=== PATIENT | male | born 1970 | race Caucasian/White ===

== ENCOUNTER 2022-06-05 14:18 | Outpatient (CLI) | payer OTHER, SELFPAY ==
--- NOTE | 2022-06-05 14:30 | MR_ITS ---
[address] [address] Phone:?[phone] Fax:?[phone] Referring Physician Information: Stefanie José [address] [facility] [address] Phone:?[phone] Fax:?[phone] Patient:?Wil Fish D.O.B:?1970 Sex:?Male Phone:?[phone] [facility] MRN:?[id number] Exam Date:?06/05/2022 ? EXAM: MRI of the LEFT KNEE, without contrast CLINICAL INFORMATION: Male, 52 years old, with left knee pain. INDICATION: Evaluate knee pain. PRIOR SURGERY: None reported. PLAIN FILMS: None available. COMPARISONS: No prior MRIs available. TECHNICAL INFORMATION: Using a 1.5T MR scanner and a localizing surface coil: sagittals: PD, PDFS coronals: PD, T2FS axials: PD, PDFS SEDATION: None CONTRAST: None FINDINGS: Knee joint: Effusion: Trace-small left knee effusion. Popliteal cyst: None. Loose bodies: None. Subcutaneous and extra-articular soft tissues: Unremarkable. Ligaments: ACL: Intact ACL anteromedial and posterolateral bundles, without sprain or tear. PCL: Intact PCL, without acute or chronic injury. MCL: Intact MCL superficial and deep layers, without injury. LCL: Intact LCL, without injury. Posterolateral corner: No posterolateral corner soft tissue injury. Popliteus, biceps femoris, iliotibial band, popliteofibular ligament and lateral gastrocnemius are intact. Posteromedial corner: Mild semimembranosus insertional tendinopathy, without tear (axial FS series 4 images 21-25). Pes anserine tendons and posterior oblique ligament are without injury, tendinopathy or bursitis. Extensor mechanism: Patellar tendon: Intact, without tendinopathy. Quadriceps tendon: Intact, without tendinopathy. Retinacula: Medial and lateral retinacula are intact. Fat pads: Unremarkable infrapatellar Hoffa's, quadriceps and prefemoral fat pads. Medial compartment: Medial meniscus: No articular surface, meniscosynovial junction or root tear. No displacement, extrusion or parameniscal cyst. Medial femoral condyle & tibial plateau: Mild signal heterogeneity, surface irregularity, and thinning of the articular cartilage without full-thickness chondral loss or reactive osseous changes. Lateral compartment: Lateral meniscus: No articular surface, meniscosynovial junction or root tear. No displacement, extrusion or parameniscal cyst. Lateral femoral condyle: No chondromalacia or osteochondral abnormality. Lateral tibial plateau: No chondromalacia or osteochondral abnormality. Patellofemoral joint: Patella: Broad-based grade II/III chondromalacia is centered about the mid median ridge of the patella, with mild marginal osteophytosis (sagittal PDFS series 6 image 17). Trochlea: Broad-based grade II chondromalacia of the medial facet and central sulcus of the trochlea, with mild marginal osteophytosis. Proximal tibiofibular joint: Unremarkable, without evidence of ligament sprain injury, joint effusion or adjacent marrow edema. Bones: No stress/occult fractures or other marrow edema/pathology. IMPRESSION: 1. Mild osteoarthritis of the patellofemoral compartment. 2. Mild semimembranosus tendinopathy, without tear. 3. Trace-small knee joint effusion. No popliteal (Alaniz's) cyst. 4. No cruciate or collateral ligament sprain/tear. 5. No lateral meniscal tear. 6. No significant osteochondral abnormality of the medial or lateral compartment. BC Electronically signed on 06/06/2022 7:05:00 AM by Ike Bone M.D.
== END 2022-06-05 14:19 | disposition home or self-care (01) ==
PROVIDERS: PCP Internal Medicine; Visit Provider Physician Assistant Surgical
DX: M25.562 Pain in left knee (principal); M17.12 Unilateral primary osteoarthritis, left knee; M25.462 Effusion, left knee
CPT/HCPCS: 73721

== ENCOUNTER 2024-08-16 18:24 | Outpatient (CLI) | payer BC, SELFPAY ==
--- OUTSIDE RECORDS SUMMARY | 2024-08-19 11:52 | XMS_ITS | Continuity of Care Document ---
Author Organization [facility] Address [address] [place] [address] Phone Care Team Providers Care Warehouse General Laborer Name Role Phone Ricardo Burgos MD Unavailable [...] [facility], [address], [place], [address], [place] tel:[phone] [facility] , PainPositive Antibody 8 Aubrey Silva. [facility] [address], [place], [address], [place]. tel:[phone] Referring Provider: Ricardo Mendiola, [facility], [address], [place], [address]. tel:[phone] Family History Family Member Type Diagnosis Age At Onset Problem (finding) No family hist ory of Rheumatoid arthritis Payers Payer name Insurance type Covered constitution party ID Authorvinicio chen(s) [facility] [id number] Social History Type Description Quantity Date Captured [...]
--- OUTSIDE RECORDS SUMMARY | 2024-08-19 11:52 | XMS_ITS | Continuity of Care Document ---
Author Organization [facility] Address [address] [place] [address] Phone Care Team Providers Care Scientific Investigator Name Role Phone Dat Ramon MD Unavailable Unavailable Procedures Procedure Date Office/Outpatient Visit,Pedro Argueta 2017 Advance Directives Directive Yes / No Effective Date File Name No Information Encounters Encounter Description Practice Location Reason(s) For Visit Diagnoses Date Provider Providers Copied on Encounter [facility], [address], [place], [id number], [place] tel:[phone] [facility] No Information Yenny Daugherty. [facility] [place], [address] [place] [address], [id number] , [place]. tel:[phone] Office/Outpat ient Visit,[facility], [facility], [address], [facility] [place], [place], [id number], [place] tel:[phone] [facility] Kol[place] Hanna. [facility] [place], [address] [place] [address] [address], [place], [address], [place]. tel:[phone] Referring Provider: Carl Thompson, [facility] [address] [place] [address], [address]. tel:[phone] [facility], [address], [place], [id number], [place] tel:[phone] [facility] Low back pain Kolton Hanna. [facility], [address] [facility] [address], [place], [address], [place]. tel:[phone] Family History Family Member Type Diagnosis Age At Onset No Information Payers Payer name Insurance type Covered republican ID Authorvinicio chen([place]) [place] [address] [place] [id number] Social History Type Description Quantity Date Captured [...]
--- OUTSIDE RECORDS SUMMARY | 2024-08-19 11:52 | XMS_ITS | Clinical Summary ---
Author Organization [facility] Address [place], [place] [address] Care Team Providers Care Pack Changer Name Role Phone Carl Thompson MD Primary Care Provider Allergies No known active allergies Medications Medication Sig Dispensed Refills Start Date End Date Status methylphenidate (CONCERTA) 36 mg Extended-Releas e tablet Take 1 tablet by mouth once daily. 0 08/05/2012 Suspended methylphenidate (RITALIN) 10 mg tablet 1 tablet 2 times daily. 0 08/05/2012 4 Discontinued(Ph armacist change per medication history (E-cancel not sent)) ibuprofen (ADVIL; MOTRIN) 200 mg tablet Take 1 tablet by mouth 4 times daily if needed. 0 08/05/2012 4 Discontinued(Ph armacist change per medication history (E-cancel not sent)) multivitamin (CHEWABLE MULTI VITAMIN) chew Take 1 tablet by mouth once daily. 0 10/01/2013 4 Discontinued(Ph armacist change per medication history (E-cancel not sent)) testosterone 1%, 12.5mg/1.25g, (ANDROGEL) 12.5 mg/ 1.25 gram (1 %) glpm GEL APPLY 2 PUMPS ONTO SKIN DAILY APPLY FROM DISPENSER TO CLEAN DRY INTACT SKIN OF THE UPPER OF ARMS AND SHOULDERS 0 06/19/2018 Suspended montelukast (SINGULAIR) 10 mg tablet Take 10 mg by mouth once daily. 1 07/25/2018 11/03/202 4 Discontinued(Ph armacist change per medication history (E-cancel not sent)) furosemide (LASIX) 20 mg tablet TAKE 1 2 TABLET 10MG BY MOUTH TWICE DAILY 3 07/25/2018 4 Discontinued(Ph armacist change per medication history (E-cancel not sent)) indomethacin (INDOCIN) 50 mg capsule TAKE ONE CAPSULE BY MOUTH THREE TIMES A DAY NEEDED 1 07/29/2018 4 Discontinued(Ph armacist change per medication history (E-cancel not sent)) eszopiclone (LUNESTA) 1 mg tablet Bedtime 04/25/2018 4 Discontinued(Ph armacist change per medication history (E-cancel not sent)) escitalopram oxalate (LEXAPRO) 20 mg tablet Take 20 mg by mouth once daily. 0 07/25/2018 Suspended gabapentin (NEURONTIN) 600 mg tablet 2 09/16/2019 4 Discontinued(Ph armacist change per medication history (E-cancel not sent)) meloxicam 15 mg tablet 0 09/13/2019 4 Discontinued(Ph armacist change per medication history (E-cancel not sent)) furosemide (LASIX) 20 mg tablet Take 10 mg by mouth two times daily. Suspended baclofen 10 mg tablet Take 10 mg by mouth 3 times daily if needed (back pain). Suspended celecoxib (CeleBREX) 200 mg capsule Take 200 mg by mouth once daily. Suspended orphenadrine (NORFLEX) 100 mg tablet Take 100 mg by mouth once daily if needed (severe pain (7-10)). Suspended acetaminophen (TylenoL) 325 mg tablet Take 650 mg by mouth once daily if needed for Headache or Pain. Max acetaminophen dose: 4000mg in 24 hrs. Suspended vitamin B complex (B Complex-Vitamin B12) tablet Take 1 Tablet by mouth once daily. Suspended potassium gluconate 600 mg (99 mg) tab Take 99 mg by mouth once daily. Suspended glucosam-chondr rkm-O-ammeipxdo 500-400-2-0.33 mg cap Take 1 Capsule by mouth once daily. Suspended cetirizine (ZYRTEC) 10 mg tablet Take 10 mg by mouth once daily. Suspended Active Problems Problem Noted Date Diagnosed Date Acute ischemic stroke 08/17/2024 Cerebrovascular accident (CV A) due to embolism of right middle cerebral artery 08/16/2024 Sacroiliac joint pain from osteoarthritis 2012 Degeneration of lumbar or lumbosacral interverte bral disc 08/05/2012 Lumbar facet arthropathy 08/05/2012 Encounters Date Type Department Care Team Description 08/18/2024 12:39 PM FACILITIES MAINTENANCE ENGINEER Anesthesia Event [facility] [address] [place] [address] Belkis Burnett MD Claeson, Kristin Lee, FILM ARCHIVIST 08/18/2024 12:34 PM FACILITIES MAINTENANCE ENGINEER - 08/18/2024 3:24 PM FACILITIES MAINTENANCE ENGINEER Surgery [facility] [address] [place] [address] Gal Doherty, [facility] RIGHT CRANIECTOMY 08/17/2024 Travel 08/16/2024 8:59 PM CDT - Present Hospital Encounter [facility] [address] [place] [address] Cierra Welch, Colt Rodriguez MBBS Litell, John Martin, DO 08/16/2024 Office Visit [facility] [address] [place] [address] Berna Méndze MD Telehealth ([facility]) from Last 3 Months Family History Medical History Relation Name Comments Stroke Mother Relation Name Status Comments Mother Social History Tobacco Use Types Packs/Day Years Used Date Smoking Tobacco: Former Cigarettes 0.5 30 Smokeless Tobacco: Never Tobacco Cessation:Counseling Given: Not Answered Alcohol Use Standard Drinks/Week Comments Yes 0 (1 standard drink = 0.6 oz pur e alcohol) occassional beer 1-2 x/weeks Sex and Gender Information Value Date Recorded Sex Assigned at Not on file Gender Identity Not on file Sexual Orientation Not on file Obstetrics History Last Filed Vital Signs Vital Sign Reading Time Taken Comments Blood Pressure 172/114 08/19/2024 11:00 AM FACILITIES MAINTENANCE ENGINEER Pulse 120 08/19/2024 11:00 AM FACILITIES MAINTENANCE ENGINEER Temperature 37.4 ??C (99.3 ??F) 08/19/2024 1 0:00 AM FACILITIES MAINTENANCE ENGINEER Respiratory Rate 22 08/19/2024 10:0 0 AM FACILITIES MAINTENANCE ENGINEER Oxygen Saturation 97% 08/19/2024 11: 00 AM FACILITIES MAINTENANCE ENGINEER Inhaled Oxygen Concentration - - Weight 136.5 kg (300 lb 14.4 oz) 08/18/2024 6:00 AM FACILITIES MAINTENANCE ENGINEER Height 162.6 cm (5' 4) 08/17/2024 1:00 AM CDT Body Mass Index 51.65 08/17/2024 1:00 AM CDT Plan of Treatment Health Maintenance Due Date Last Done Comments Tdap 1983 Depression screening for age 12+ 1984 HIV for age 15-65 1987 Hepatitis C screening for age 18-79 1990 Tetanus booster 1992 Colonoscopy through age 75 2017 BMI (ht and wt on same day) for age 18+ 08/01/2019 08/01/2018 Zoster (shingles) series for age 50+ (1 of 2) 2022 Influenza for age 50-64 06/15/2024 Lipids for age 45-75 08/17/2029 08/17/2024 COVID-19 vaccine series Completed 07/04/20, 08/02/2023, 07/25/2022, Additional history exists Pneumococcal series for age 6-64 Aged Out No longer eligible based on patient's age to complete this topic Medical Devices Implanted Type Area Fiberline Supervisor Device Identifier Shelf Expiration Date Model / Serial / Lot Dura Neuro 4x5in Duragen Sut - [id number] Implanted:Qty: 1 on 08/18/2024 by Gal Doherty MBChB at [facility] Right: Cranium Integra LifesciMZL [employer] 05/14/2026 [id number] / / [id number] Dura Neuro 4x5in Duragen Sut - [id number] Implanted:Qty: 1 on 08/18/2024 by Gal Doherty MBChB at [facility] Right: Cranium Integra LifesciMZL [employer] 05/14/2026 [id number] / / [id number] Procedures The patient is currently admitted. The information in this section might not be complete until the patient is discharged. Procedure Name Priority Date/Time Associated Diagnosis Comments ECHO TTE COMPLETE WO CONTRAST W BUBBLE Routine 08/19/2024 10:37 AM FACILITIES MAINTENANCE ENGINEER SODIUM Timed 08/19/2024 10:31 AM FACILITIES MAINTENANCE ENGINEER GLUCOSE METER Timed 08/19/2024 10:28 AM FACILITIES MAINTENANCE ENGINEER SCAN-CARDIAC STRIP 08/19/2024 9: 24 AM FACILITIES MAINTENANCE ENGINEER HEMOGLOBIN Early AM 08/19/2024 5:41 AM FACILITIES MAINTENANCE ENGINEER POTASSIUM Early AM 08/19/2024 5:04 AM FACILITIES MAINTENANCE ENGINEER MAGNESIUM Early AM 08/19/2024 5:04 AM FACILITIES MAINTENANCE ENGINEER SODIUM Timed 08/19/2024 5:04 AM FACILITIES MAINTENANCE ENGINEER GLUCOSE METER Timed 08/19/2024 5:03 AM FACILITIES MAINTENANCE ENGINEER GLUCOSE METER Timed 08/19/2024 5:01 AM FACILITIES MAINTENANCE ENGINEER CT HEAD BRAIN WO Routine 08/19/2024 4:08 AM FACILITIES MAINTENANCE ENGINEER GLUCOSE METER Timed 08/19/2024 2:28 AM FACILITIES MAINTENANCE ENGINEER GLUCOSE METER Timed 08/19/2024 1:07 AM FACILITIES MAINTENANCE ENGINEER BLOOD GAS,VENOUS STAT 08/19/2024 1:06 AM FACILITIES MAINTENANCE ENGINEER CBC WITH AUTO DIFFERENTIAL JOSE 08/18/2024 10:00 PM FACILITIES MAINTENANCE ENGINEER CBC WITH AUTO DIFFERENTIAL JOSE 08/18/2024 10:00 PM FACILITIES MAINTENANCE ENGINEER GLUCOSE METER Timed 08/18/2024 9:36 PM FACILITIES MAINTENANCE ENGINEER SODIUM Timed 08/18/2024 9:13 PM FACILITIES MAINTENANCE ENGINEER PHOSPHORUS Timed 08/18/2024 9:13 PM FACILITIES MAINTENANCE ENGINEER SCAN-CARDIAC STRIP 08/18/2024 8: 05 PM FACILITIES MAINTENANCE ENGINEER GLUCOSE METER Timed 08/18/2024 6:24 PM FACILITIES MAINTENANCE ENGINEER SODIUM Timed 08/18/2024 4:51 PM FACILITIES MAINTENANCE ENGINEER ENDOTRACHEAL TUBE Routine 08/18/2024 1:3 3 PM FACILITIES MAINTENANCE ENGINEER ENDOTRACHEAL TUBE Routine 08/18/2024 1:3 3 PM FACILITIES MAINTENANCE ENGINEER ENDOTRACHEAL TUBE Routine 08/18/2024 1:3 3 PM FACILITIES MAINTENANCE ENGINEER OTHER CRANIOTOMY Class D Urgent 08/18/2024 11:5 6 AM FACILITIES MAINTENANCE ENGINEER Case Notes DRAKE Potter, TYPE & SCREEN Preop 08/18/2024 11:49 AM FACILITIES MAINTENANCE ENGINEER CT HEAD BRAIN WO Routine 08/18/2024 10:4 4 AM FACILITIES MAINTENANCE ENGINEER SODIUM Timed 08/18/2024 10:21 AM FACILITIES MAINTENANCE ENGINEER GLUCOSE METER Timed 08/18/2024 10:15 AM FACILITIES MAINTENANCE ENGINEER GLUCOSE METER Timed 08/18/2024 6:12 AM FACILITIES MAINTENANCE ENGINEER CBC W PLT NO DIFF Early AM 08/18/2024 5:1 5 AM FACILITIES MAINTENANCE ENGINEER BASIC METABOLIC PANEL Early AM 08/18/2024 5:15 AM FACILITIES MAINTENANCE ENGINEER PHOSPHORUS Early AM 08/18/2024 5:15 AM FACILITIES MAINTENANCE ENGINEER MAGNESIUM Early AM 08/18/2024 5:15 AM FACILITIES MAINTENANCE ENGINEER SODIUM Timed 08/18/2024 4:10 AM FACILITIES MAINTENANCE ENGINEER CT HEAD BRAIN WO Routine 08/18/2024 3:33 AM FACILITIES MAINTENANCE ENGINEER DRUG SCREEN RAPID URINE INHOUSE Today 08/18/2024 2:39 AM FACILITIES MAINTENANCE ENGINEER GLUCOSE METER Timed 08/18/2024 1:57 AM FACILITIES MAINTENANCE ENGINEER GLUCOSE METER Timed 08/17/2024 10:54 PM FACILITIES MAINTENANCE ENGINEER SODIUM Timed 08/17/2024 10:48 PM FACILITIES MAINTENANCE ENGINEER SCAN-CARDIAC STRIP 08/17/2024 8: 00 PM FACILITIES MAINTENANCE ENGINEER GLUCOSE METER Timed 08/17/2024 6:59 PM FACILITIES MAINTENANCE ENGINEER CT HEAD BRAIN WO Routine 08/17/2024 6:26 PM FACILITIES MAINTENANCE ENGINEER SODIUM Timed 08/17/2024 3:58 PM FACILITIES MAINTENANCE ENGINEER XR ABDOMEN 1 VIEW PORTABLE STAT 08/17/2024 3:10 PM FACILITIES MAINTENANCE ENGINEER GLUCOSE METER Timed 08/17/2024 2:15 PM FACILITIES MAINTENANCE ENGINEER SODIUM Timed 08/17/2024 10:49 AM FACILITIES MAINTENANCE ENGINEER BLOOD GAS,VENOUS STAT 08/17/2024 10:4 9 AM FACILITIES MAINTENANCE ENGINEER GLUCOSE METER Timed 08/17/2024 10:43 AM FACILITIES MAINTENANCE ENGINEER MR HEAD BRAIN WO Routine 08/17/2024 9:32 AM FACILITIES MAINTENANCE ENGINEER CT HEAD BRAIN WO STAT 08/17/2024 6:21 AM FACILITIES MAINTENANCE ENGINEER GLUCOSE METER Timed 08/17/2024 5:57 AM FACILITIES MAINTENANCE ENGINEER CBC WITH AUTO DIFFERENTIAL Early AM 08/17/2024 5:00 AM FACILITIES MAINTENANCE ENGINEER POTASSIUM Early AM 08/17/2024 5:00 AM FACILITIES MAINTENANCE ENGINEER PHOSPHORUS Early AM 08/17/2024 5:00 AM FACILITIES MAINTENANCE ENGINEER MAGNESIUM Early AM 08/17/2024 5:00 AM FACILITIES MAINTENANCE ENGINEER HEMOGLOBIN A1C Early AM 08/17/2024 5:00 AM FACILITIES MAINTENANCE ENGINEER CBC WITH AUTO DIFFERENTIAL Early AM 08/17/2024 5:00 AM FACILITIES MAINTENANCE ENGINEER LIPID PANEL Early AM 08/17/2024 5:00 AM FACILITIES MAINTENANCE ENGINEER PROTIME-INR Early AM 08/17/2024 5:00 AM FACILITIES MAINTENANCE ENGINEER APTT Early AM 08/17/2024 5:00 AM FACILITIES MAINTENANCE ENGINEER GLUCOSE METER Timed 08/17/2024 3:11 AM FACILITIES MAINTENANCE ENGINEER SCAN-CARDIAC STRIP 08/17/2024 1: [address] HEAD BRAIN WO STAT 08/17/2024 12:4 2 AM CDT GLUCOSE METER Timed 08/17/2024 12:20 AM CDT HEMOGLOBIN A1C MONITORING (POCT) Today 08/16/2024 10:55 PM CDT BASIC METABOLIC PANEL STAT 08/16/2024 10:55 PM CDT PHOSPHORUS Today 08/16/2024 10:55 PM CDT MAGNESIUM Today 08/16/2024 10:55 PM CDT GLUCOSE METER Timed 08/16/2024 10:10 PM CDT SCAN-CARDIAC STRIP 08/16/2024 10 :07 PM CDT IR ANGIO NEURO-INTERVENTIONAL STAT 08/16/2024 9:44 PM CDT SCAN-CARDIAC STRIP 08/16/2024 12 :00 AM CDT from Last 3 Months Results * ECHO TTE COMPLETE WO CONTRAST W BUBBLE (08/19/2024 10:37 AM FACILITIES MAINTENANCE ENGINEER) AORTIC VALVE MEAN PG 8 mmHg LVEDD 4.9 cm EJECTION FRACTION 70 - 75% Anatomical Region Laterality Modality Ultrasound 08/19/2024 8:21 AM FACILITIES MAINTENANCE ENGINEER Narrative 08/19/2024 10:58 AM FACILITIES MAINTENANCE ENGINEER ECHOCARDIOGRAM DIONI DAWSON ? Accession#: ?? [id number] : ?1970 54 years Study Date: ?? 08/19/2024 8:21:42 AM Gender: M ?BP: ? 176/111 mmHg Height: 163.00 cm ?BSA: ?2.34 m? ? ? Weight: 137.00 kg ?Tech: ? Santi Guerra ? Referring MD: DODIE FRANCE Site: ? [facility] Patient Location: Inpatient. Procedure: 2D, 2D w/ Contrast, 2D w/ Bubbles, Color Doppler and Spectral Doppler. Indication for study: Cerebral thrombosism aretery occlusion, Embolism Cardiac Rhythm: Normal sinus.Study quality: Technically limited. Final Impressions: 1. Technically limited exam. 2. Normal LV size, mildly increased wall thickness, normal global systolic function with an estimated EF of 70 - 75%. 3. Right ventricular cavity size is normal, global systolic RV function is normal. 4. Echo contrast was administered to enhance visualization of all left ventricular segments. 5. No significant valve disease detected based on available images. Chamber Sizes and Function Normal left ventricular size, mildly increased wall thickness, normal global systolic function with an estimated EF of 70 - 75%. No resting regional wall motion abnormality visualized. Left atrial size is normal. Right ventricular cavity size is normal, global systolic RV function is normal. The right atrium is normal. The pulmonary artery is not well visualized. The sinus of Valsalva is not well visualized. The ascending aorta is not well visualized. Valves, RV Pressures and Diastolic Function The aortic valve is not well visualized , no stenosis and no regurgitation. The mitral valve is not well visualized, trace mitral regurgitation. Indeterminate pattern of LV diastolic filling. The tricuspid valve is not well visualized. Tricuspid regurgitation is trace regurgitation. The pulmonic valve is not well visualized. Unable to determine pulmonary regurgitation. Masses, Effusion, Shunts There is no pericardial effusion. The inferior vena cava is not well visualized, respiratory size variation not well visualized. Interatrial septum is not well visualized. MEASUREMENTS AND CALCULATIONS 2-D Measurements and LV Function: LVID (d) 4.9 cm LV FS% (2D) ?? 48 % LVID (s) 2.6 cm LVOT diameter 2.1 cm IVS (d) ??1.2 cm HR ?117 bpm LVPW (d) 1.4 cm Diastology: Mitral ?Tissue Doppler E Peak 0.8 m/s ??e', Lateral ?0.15 m/s A Peak 1.3 m/s E/A ?0.7 DT ? 202 msec Aortic Valve: Vmax ? 1.8 m/s ??KENNEDY (V) ?? 2.34 cm? ? ? VTI ?0.36 m ?? KENNEDY (I) ?? 2.06 cm? ? ? LVOT V max 1.2 m/s ??Max PG ?13 mmHg LVOT VTI ?? 0.21 m ?? Mean PG ?? 8 mmHg SV ? 73 ml ?Dim Index 0.58 SV index ?? 31 ml/m? ? ? CO ?8.6 l/min ?CI ?3.7 l/min/m? ? ? Mitral Valve: MVA ?3.8 cm? ? ? MV P 1/2 59 msec Tricuspid Valve and estimated PA pressures: Pulmonic Valve: PV Vmax 1.4 m/s Contrast documentation: 2 ml diluted Definity, lot #[id number], [facility]# [id number] was administered peripherally to enhance visualization of all left ventricular segments. . This study was interpreted by an [facility] accredited facility. ??Final ?? Procedure Note Quique Castelan MD - 08/19/2024 ECHOCARDIOGRAM DIONI DAWSON : 1970 54 years Study Date: 08/19/2024 8:21:42 AM Gender: M BP: 176/111 mmHg Height: 163.00 cm BSA: 2.34 m? ? ? Weight: 137.00 kg Tech: Santi Guerra Referring MD: DODIE FRANCE Site: [facility] Reading [facility] Patient Location: Inpatient. Procedure: 2D, 2D w/ Contrast, 2D w/ Bubbles, Color Doppler and SpectralDoppler. Indication for study: Cerebral thrombosism aretery occlusion, Embolism Cardiac Rhythm: Normal sinus.Study quality: Technically limited. Final Impressions: 1. Technically limited exam. 2. Normal LV size, mildly increased wall thickness, normal globalsystolic function with an estimated EF of 70 - 75%. 3. Right ventricular cavity size is normal, global systolic RV functionis normal. 4. Echo contrast was administered to enhance visualization of all leftventricular segments. 5. No significant valve disease detected based on available images. Chamber Sizes and Function Normal left ventricular size, mildly increased wall thickness, normalglobal systolic function with an estimated EF of 70 - 75%. No restingregional wall motion abnormality visualized. Left atrial size is normal.Right ventricular cavity size is normal, global systolic RV function isnormal. The right atrium is normal. The pulmonary artery is not wellvisualized. The sinus of Valsalva is not well visualized. The ascendingaorta is not well visualized. Valves, RV Pressures and Diastolic Function The aortic valve is not well visualized , no stenosis and noregurgitation. The mitral valve is not well visualized, trace mitralregurgitation. Indeterminate pattern of LV diastolic filling. Thetricuspid valve is not well visualized. Tricuspid regurgitation is traceregurgitation. The pulmonic valve is not well visualized. Unable todetermine pulmonary regurgitation. Masses, Effusion, Shunts There is no pericardial effusion. The inferior vena cava is not wellvisualized, respiratory size variation not well visualized. Interatrialseptum is not well visualized. MEASUREMENTS AND CALCULATIONS 2-D Measurements and LV Function: LVID (d) 4.9 cm LV FS% (2D) 48 % LVID (s) 2.6 cm LVOT diameter 2.1 cm IVS (d) 1.2 cm HR 117 bpm LVPW (d) 1.4 cm Diastology: Mitral Tissue Doppler E Peak 0.8 m/s e', Lateral 0.15 m/s A Peak 1.3 m/s E/A 0.7 DT 202 msec Aortic Valve: Vmax 1.8 m/s KENNEDY (V) 2.34 cm? ? ? VTI 0.36 m KENNEDY (I) 2.06 cm? ? ? LVOT V max 1.2 m/s Max PG 13 mmHg LVOT VTI 0.21 m Mean PG 8 mmHg SV 73 ml Dim Index 0.58 SV index 31 ml/m? ? ? CO 8.6 l/min CI 3.7 l/min/m? ? ? Mitral Valve: MVA 3.8 cm? ? ? MV P 1/2 59 msec Tricuspid Valve and estimated PA pressures: Pulmonic Valve: PV Vmax 1.4 m/s Contrast documentation: 2 ml diluted Definity, lot #[id number], [facility]#[id number] was administered peripherally to enhance visualization of allleft ventricular segments. . This study was interpreted by an [facility] accredited facility. Final Dodie France MD ECHO ORD * (ABNORMAL) Sodium - ICU PROT NaCl 3% IV Infusion for Neuro Neurosurgery (08/19/2024 10:31 AM FACILITIES MAINTENANCE ENGINEER) Only the most recent of9 resultswithin the time period is included. SODIUM 152(H) 136 - 145 mmol/L 08/19/2024 11:10 AM [facility] Blood BLOOD SPECIMEN / Unknown Non-Lab Venipuncture / Unknown 08/19/2024 10:31 AM FACILITIES MAINTENANCE ENGINEER 08/19/2024 10:48 AM FACILITIES MAINTENANCE ENGINEER Karolina Curtis NP CHEMISTRY Performing Organization Address [facility] Co de Phone Number [facility] [address] [place] [address], * (ABNORMAL) GLUCOSE METER (08/19/2024 10:28 AM FACILITIES MAINTENANCE ENGINEER) Only the most recent of18 resultswithin the time period is included. GLUCOSE METER 161(H) 65 - 100 mg/dL 08/19/2024 10:50 AM FACILITIES MAINTENANCE ENGINEER [facility] Blood BLOOD SPECIMEN / Unknown 08/19/2024 10:28 AM FACILITIES MAINTENANCE ENGINEER 08/19/2024 10:50 AM FACILITIES MAINTENANCE ENGINEER Alfonso Carlin DO CHEMISTRY Performing Organization Address [facility] Co de Phone Number [facility] [address] [place] [address], * SCAN-CARDIAC STRIP (08/19/2024 9:24 AM FACILITIES MAINTENANCE ENGINEER) Scanner OTHER * (ABNORMAL) HEMOGLOBIN (08/19/2024 5:41 AM FACILITIES MAINTENANCE ENGINEER) HEMOGLOBIN 12.1(L) 13.5 - 17.5 g/dL 08/19/2024 5:57 AM FACILITIES MAINTENANCE ENGINEER [facility] MCV 94 80 - 100 fL 08/19/2024 5:57 AM FACILITIES MAINTENANCE ENGINEER [facility] Blood BLOOD SPECIMEN / Unknown Non-Lab Venipuncture / Unknown 08/19/2024 5:41 AM FACILITIES MAINTENANCE ENGINEER 08/19/2024 5:50 AM FACILITIES MAINTENANCE ENGINEER Rakesh Arboleda MD HEMATOLOGY Performing Organization Address [facility] Co de Phone Number [facility] [address] [place] [address], * POTASSIUM (08/19/2024 5:04 AM FACILITIES MAINTENANCE ENGINEER) Only the most recent of2 resultswithin the time period is included. POTASSIUM 3.7 3.5 - 5.1 mmol/L 08/19/2024 5:45 AM FACILITIES MAINTENANCE ENGINEER [facility] Blood BLOOD SPECIMEN / Unknown Line/Port / Unknown 08/19/2024 5:04 AM FACILITIES MAINTENANCE ENGINEER 08/19/2024 5:11 AM FACILITIES MAINTENANCE ENGINEER [employer] CHEMISTRY Performing Organization Address [facility]/ZIP Co de Phone Number [facility] [address] [place] [address], * MAGNESIUM (08/19/2024 5:04 AM FACILITIES MAINTENANCE ENGINEER) Only the most recent of4 resultswithin the time period is included. MAGNESIUM 2.2 1.6 - 2.6 mg/dL 08/19/2024 5:45 AM FACILITIES MAINTENANCE ENGINEER [facility] Blood BLOOD SPECIMEN / Unknown Line/Port / Unknown 08/19/2024 5:04 AM FACILITIES MAINTENANCE ENGINEER 08/19/2024 5:11 AM FACILITIES MAINTENANCE ENGINEER [employer] CHEMISTRY Performing Organization Address [facility] de Phone Number [facility] [address] [place] [address], [place] * CT HEAD BRAIN WO (08/19/2024 4:08 AM FACILITIES MAINTENANCE ENGINEER) Only the most recent of6 resultswithin the time period is included. Anatomical Region Laterality Modality HEAD, BRAIN Computed Tomogra phy 08/19/2024 7:06 AM FACILITIES MAINTENANCE ENGINEER Addenda Addendum by Gisele Rush MD on 08/19/2024 7:52 AM FACILITIES MAINTENANCE ENGINEER INDICATION: Neuro deficit, follow-up stroke/alexandra TECHNIQUE: CT head without contrast. COMPARISON: CT head 08/18/2024 FINDINGS: MASS EFFECT & VENTRICLES: Similar leftward midline shift measuring 5 millimeters. Similar near complete effacement of the right lateral ventricle and crowding of the right ambient cistern. Sulcal effacement throughout the right cerebral hemisphere. BRAIN: Redemonstration of large right MCA infarct. No intraparenchymal hemorrhage. Redemonstration of hyperdense right MCA. EXTRA-AXIAL: New subarachnoid hemorrhage throughout the right frontal and parietal lobes. Sequela of right decompressive craniotomy including some gas in the extra-axial space. EXTRA-CRANIAL: Post right decompressive craniotomy involving the right frontal and parietal bones, and parts of the temporal and occipital bones. Expected gas along the scalp. Soft tissue swelling and gas throughout the right face. [place] overlying the craniotomy. The visualized sinuses and mastoids are clear. Orbits are normal. Enteric tube in the right nare. IMPRESSION: Post interval right decompressive craniotomy with extensive gas and soft tissue swelling along the scalp and right face. New subarachnoid hemorrhage in the right frontal and parietal lobes, which can be seen postoperatively. Expected evolution of the large right MCA infarct with similar mass effect, including 5 millimeters of leftward midline shift, near complete effacement of the right lateral ventricle, and crowding of the right ambient cistern. Please note that all CT scans at this facility use dose modulation, iterative reconstruction, and/or weight-based dosing when appropriate to reduce radiation dose to as low as reasonably achievable. Dictated by Gisele Rush MD @ 08/19/2024 7:06:07 AM ----- ADDENDUM ----- These results were communicated to [place] by Adri on 08/19/2024 at 7:06 a.m. Dictated by Gisele Rush MD @ Nov ??2023 ??7:52AM (Electronically Signed) Impressions 08/19/2024 7:06 AM FACILITIES MAINTENANCE ENGINEER Post interval right decompressive craniotomy with extensive gas and soft tissue swelling along the scalp and right face. New subarachnoid hemorrhage in the right frontal and parietal lobes, which can be seen postoperatively. Expected evolution of the large right MCA infarct with similar mass effect, including 5 millimeters of leftward midline shift, near complete effacement of the right lateral ventricle, and crowding of the right ambient cistern. Please note that all CT scans at this facility use dose modulation, iterative reconstruction, and/or weight-based dosing when appropriate to reduce radiation dose to as low as reasonably achievable. Dictated by Gisele Rush MD @ 08/19/2024 7:06:07 AM (Electronically Signed) Narrative 08/19/2024 7:06 AM FACILITIES MAINTENANCE ENGINEER For Patients: ??As a result of the 21st Century Cures Act, medical imaging exams and procedure reports are released immediately into your electronic medical record. ??You may view this report before your referring provider. ??If you have questions, please contact your health care provider. INDICATION: Neuro deficit, follow-up stroke/alexandra TECHNIQUE: CT head without contrast. COMPARISON: CT head 08/18/2024 FINDINGS: MASS EFFECT & VENTRICLES: Similar leftward midline shift measuring 5 millimeters. Similar near complete effacement of the right lateral ventricle and crowding of the right ambient cistern. Sulcal effacement throughout the right cerebral hemisphere. BRAIN: Redemonstration of large right MCA infarct. No intraparenchymal hemorrhage. Redemonstration of hyperdense right MCA. EXTRA-AXIAL: New subarachnoid hemorrhage throughout the right frontal and parietal lobes. Sequela of right decompressive craniotomy including some gas in the extra-axial space. EXTRA-CRANIAL: Post right decompressive craniotomy involving the right frontal and parietal bones, and parts of the temporal and occipital bones. Expected gas along the scalp. Soft tissue swelling and gas throughout the right face. [place] overlying the craniotomy. The visualized sinuses and mastoids are clear. Orbits are normal. Enteric tube in the right nare. Procedure Note Gisele Rush MD - 08/19/2024 For Patients: As a result of the Century Cures Act, medical imagingexams and procedure reports are released immediately into your electronicmedical record. You may view this report before your referring provider.If you have questions, please contact your health care provider. INDICATION: Neuro deficit, follow-up stroke/alexandra TECHNIQUE: CT head without contrast. COMPARISON: CT head 08/18/2024 FINDINGS: MASS EFFECT & VENTRICLES: Similar leftward midline shift measuring 5millimeters. Similar near complete effacement of the right lateralventricle and crowding of the right ambient cistern. Sulcal effacementthroughout the right cerebral hemisphere. BRAIN: Redemonstration of large right MCA infarct. No intraparenchymalhemorrhage. Redemonstration of hyperdense right MCA. EXTRA-AXIAL: New subarachnoid hemorrhage throughout the right frontal andparietal lobes. Sequela of right decompressive craniotomy including somegas in the extra- axial space. EXTRA-CRANIAL: Post right decompressive craniotomy involving the rightfrontal and parietal bones, and parts of the temporal and occipital bones.Expected gas along the scalp. Soft tissue swelling and gas throughout theright face. [place] overlying the craniotomy. The visualized sinuses andmastoids are clear. Orbits are normal. Enteric tube in the right nare. IMPRESSION: Post interval right decompressive craniotomy with extensive gas and softtissue swelling along the scalp and right face. New subarachnoid hemorrhage in the right frontal and parietal lobes, whichcan be seen postoperatively. Expected evolution of the large right MCA infarct with similar masseffect, including 5 millimeters of leftward midline shift, near completeeffacement of the right lateral ventricle, and crowding of the rightambient cistern. Please note that all CT scans at this facility use dose modulation,iterative reconstruction, and/or weight-based dosing when appropriate toreduce radiation dose to as low as reasonably achievable. Dictated by Gisele Rush MD @ 08/19/2024 7:06:07 AM (Electronically Signed) Rakesh Arboleda MD CT * (ABNORMAL) BLOOD GAS,VENOUS (08/19/2024 1:06 AM FACILITIES MAINTENANCE ENGINEER) Only the most recent of2 resultswithin the time period is included. PH, VENOUS 7.35 7.32 - 7.43 08/19/2024 1:17 AM [facility] PCO2, VENOUS 47 41 - 51 mmHg 08/19/2024 1:17 AM [facility] PO2, VENOUS 47(H) 35 - 40 mmHg 08/19/2024 1:17 AM [facility] HCO3,VENOUS 26 22 - 29 mmol/L 08/19/2024 1:17 AM FACILITIES MAINTENANCE ENGINEER [facility] BASE EXCESS, VENOUS, POCT -0.2 -2.0 - 3.0 08/19/2024 1:17 AM [facility] O2 SATURATION, VENOUS 79(H) 70 - 75 % 08/19/2024 1:17 AM [facility] PATIENT TEMPERATURE 37.0 Degrees C 08/19/2024 1:17 AM [facility] Blood VENOUS BLOOD SPECIMEN / Unknown Non-Lab Venipuncture / Unknown 08/19/2024 1:06 AM FACILITIES MAINTENANCE ENGINEER 08/19/2024 1:13 AM FACILITIES MAINTENANCE ENGINEER Rakesh Arboleda MD CHEMISTRY [facility] [address] [place] [address], [place] * (ABNORMAL) CBC WITH AUTO DIFFERENTIAL (08/18/2024 10:00 PM FACILITIES MAINTENANCE ENGINEER) Only the most recent of2 resultswithin the time period is included. WHITE BLOOD COUNT 23.1(H) 4.5 - 11.0 thou/cu mm 08/18/2024 10:34 PM [facility] RED BLOOD COUNT 4.05(L) 4.30 - 5.90 mil/cu mm 08/18/2024 10:34 PM [facility] HEMOGLOBIN 11.8(L) 13.5 - 17.5 g/dL 08/18/2024 10:34 PM [facility] HEMATOCRIT 37.8 37.0 - 53.0 % 08/18/2024 10:34 PM [facility] MCV 93 80 - 100 fL 08/18/2024 10:34 PM [facility] MCH 29.1 26.0 - 34.0 pg 08/18/2024 10:34 PM [facility] MCHC 31.2(L) 32.0 - 36.0 g/dL 08/18/2024 10:34 PM [facility] RDW 14.4 11.5 - 15.5 % 08/18/2024 10:34 PM [facility] PLATELET COUNT 230 140 - 440 thou/cu mm 08/18/2024 10:34 PM [facility] MPV 9.6 6.5 - 11.0 fL 08/18/2024 10:34 PM [facility] NRBC 0.0 % 08/18/2024 10:34 PM [facility] ABS NRBC 0.0 thou /cu mm 08/18/2024 10:34 PM [facility] % NEUT 90.3 % 08/18/2024 10:34 PM [facility] % LYMPH 3.4 % 08/18/2024 10:34 PM [facility] % MONO 5.5 % 08/18/2024 10:34 PM [facility] % EOS 0.0 % 08/18/2024 10:34 PM [facility] % BASO 0.2 % 08/18/2024 10:34 PM [facility] % IMMATURE GRAN (METAS,MYELOS,MO OS) 0.6 % 08/18/2024 10:34 PM [facility] ABSOLUTE NEUTROPHILS 20.9(H) 1.7 - 7.0 thou/cu mm 08/18/2024 10:34 PM [facility] ABSOLUTE LYMPHOCYTES 0.8(L) 0.9 - 2.9 thou/cu mm 08/18/2024 10:34 PM [facility] ABSOLUTE MONOCYTES 1.3(H) <0.9 thou/cu mm 08/18/2024 10:34 PM [facility] ABSOLUTE EOSINOPHILS 0.0 <0.5 thou/cu mm 08/18/2024 10:34 PM [facility] ABSOLUTE BASOPHILS 0.0 <0.3 thou/cu mm 08/18/2024 10:34 PM [facility] ABSOLUTE IMMATURE GRANULOCYTES(MET ,MYELOS,PROS) 0.2 <0.3 thou/cu mm 08/18/2024 10:34 PM [facility] Blood BLOOD SPECIMEN / Unknown Line/Port / Unknown 08/18/2024 10:00 PM FACILITIES MAINTENANCE ENGINEER 08/18/2024 10:10 PM [facility] Tony Blevins RN HEMATOLOGY [facility] [address] [place] [id number], * PHOSPHORUS (08/18/2024 9:13 PM FACILITIES MAINTENANCE ENGINEER) Only the most recent of4 resultswithin the time period is included. PHOSPHORUS 2.8 2.5 - 4.5 mg/dL 08/18/2024 10:18 PM FACILITIES MAINTENANCE ENGINEER [facility] Blood BLOOD SPECIMEN / Unknown Non-Lab Venipuncture / Unknown 08/18/2024 9:13 PM FACILITIES MAINTENANCE ENGINEER 08/18/2024 9:49 PM FACILITIES MAINTENANCE ENGINEER Colt NICOLE CHEMISTRY [facility] [address] [place] [id number], * SCAN-CARDIAC STRIP (08/18/2024 8:05 PM FACILITIES MAINTENANCE ENGINEER) Scanner OTHER * HCHG TUBE PR1, HCHG INSTRUMENT DISP PR10, HCHG STYLET PR1 (08/18/2024 1:33 PM FACILITIES MAINTENANCE ENGINEER) Narrative Nenita Kaba CRNA - 08/18/2024 1:33 PM FACILITIES MAINTENANCE ENGINEER Nenita Kaba CRNA ? 08/18/2024 ??1:34 PM Procedure: ETT Patient location during procedure: OR ETT Properties Mask Ventilation: easy (2 hand.) Final Technique: video laryngoscopy Type: straight Location: oral Cuffed: yes Tube Size: 7.0 mm Stylet: yes Laryngoscope Blade: Glidescope Blade Size: 3 Cormack-Lehane Grade View: 1 Insertion Attempts: 1 Placement Verification: auscultation, end tidal CO2, symmetrical chest wall movement and cuff palpation Assessment: pharynx clear, atraumatic and dentition unchanged Secured at: 23 Measured From: lips Bite Block: soft Difficulty: 0 (not difficult) Belkis Burnett MD ANESTHESIA PX NOTE O RDERABLES * Type and Screen (08/18/2024 11:49 AM FACILITIES MAINTENANCE ENGINEER) ABORH AB Rh Positive 08/18/2024 12:50 PM [facility] ANTIBODY SCREEN Negative Negative 08/18/2024 12:50 PM [facility] SPECIMEN EXPIRATION DATE/TIME 08/21/24 23:59 08/18/2024 12:50 PM [facility] Blood BLOOD SPECIMEN / Unknown Non-Lab Venipuncture / Unknown 08/18/2024 11:49 AM FACILITIES MAINTENANCE ENGINEER 08/18/2024 12:01 PM FACILITIES MAINTENANCE ENGINEER Abbey Antunez MIXER MACHINE [facility] [address] [place] [address], * (ABNORMAL) CBC W PLT NO DIFF (08/18/2024 5:15 AM FACILITIES MAINTENANCE ENGINEER) WHITE BLOOD COUNT 17.0(H) 4.5 - 11.0 thou/cu mm 08/18/2024 5:41 AM [facility] RED BLOOD COUNT 4.31 4.30 - 5.90 mil/cu mm 08/18/2024 5:41 AM [facility] HEMOGLOBIN 12.6(L) 13.5 - 17.5 g/dL 08/18/2024 5:41 AM [facility] HEMATOCRIT 39.8 37.0 - 53.0 % 08/18/2024 5:41 AM [facility] MCV 92 80 - 100 fL 08/18/2024 5:41 AM [facility] MCH 29.2 26.0 - 34.0 pg 08/18/2024 5:41 AM [facility] MCHC 31.7(L) 32.0 - 36.0 g/dL 08/18/2024 5:41 AM [facility] RDW 14.0 11.5 - 15.5 % 08/18/2024 5:41 AM [facility] PLATELET COUNT 253 140 - 440 thou/cu mm 08/18/2024 5:41 AM [facility] MPV 9.2 6.5 - 11.0 fL 08/18/2024 5:41 AM [facility] NRBC 0.0 % 08/18/2024 5:41 AM [facility] ABS NRBC 0.0 thou /cu mm 08/18/2024 5:41 AM [facility] Blood BLOOD SPECIMEN / Unknown Non-Lab Venipuncture / Unknown 08/18/2024 5:15 AM FACILITIES MAINTENANCE ENGINEER 08/18/2024 5:28 AM FACILITIES MAINTENANCE ENGINEER Karolina Curtis NP HEMATOLOGY [facility] [address] [place] [address], * (ABNORMAL) BASIC METABOLIC PANEL (08/18/2024 5:15 AM [facility]) Only the most recent of2 resultswithin the time period is included. SODIUM 147(H) 136 - 145 mmol/L 08/18/2024 6:05 AM [facility] POTASSIUM 3.9 3.5 - 5.1 mmol/L 08/18/2024 6:05 AM [facility] CHLORIDE 113(H) 98 - 107 mmol/L 08/18/2024 6:05 AM [facility] CO2,TOTAL 24 22 - 29 mmol/L 08/18/2024 6:05 AM [facility] ANION GAP 10 5 - 18 08/18/2024 6:05 AM [facility] GLUCOSE 153(H) 70 - 99 mg/dL 08/18/2024 6:05 AM [facility] CALCIUM 8.2(L) 8.6 - 10.0 mg/dL 08/18/2024 6:05 AM [facility] BUN 16 6 - 20 mg/dL 08/18/2024 6:05 AM [facility] CREATININE 0.72 0.70 - 1.20 mg/dL 08/18/2024 6:[address] [facility] BUN/CREAT RATIO 22(H) 10 - 20 6:05 AM [facility] eGFR >90 >90 mL/min/1.7 3m2 08/18/2024 6:05 AM [facility] Comment:As of 2021, eG FR is calculated by the CKD-EPI creatinine equation without race adjustment. ??eGFR can be influenced by muscle mass, exercise, and diet. ??The reported eGFR is an estimation only and is only applicable if the renal function is stable. Blood BLOOD SPECIMEN / Unknown Non-Lab Venipuncture / Unknown 08/18/2024 5:15 AM FACILITIES MAINTENANCE ENGINEER 08/18/2024 5:28 AM FACILITIES MAINTENANCE ENGINEER Karolina Curtis NP CHEMISTRY [facility] [address] [place] [address], * DRUG SCREEN RAPID URINE INHOUSE (08/18/2024 2:39 AM FACILITIES MAINTENANCE ENGINEER) THC METABOLITES,MARTINE L Not Detected Not Detected 08/18/2024 3:15 AM [facility] PCP,QUAL Not Detected Not Detected 08/18/2024 3:15 AM [facility] COCAINE,QUAL Not Detected Not Detected 08/18/2024 3:15 AM [facility] METHAMPHETAMINE , QUALITATIVE Not Detected Not Detected 08/18/2024 3:15 AM [facility] OPIATES,QUAL Not Detected Not Detected 08/18/2024 3:15 AM [facility] AMPHETAMINE, QUALITATIVE Not Detected Not Detected 08/18/2024 3:15 AM [facility] BENZODIAZEPINES ,QUAL Not Detected Not Detected 08/18/2024 3:15 AM [facility] TRICYCLICS,QUAL Not Detected Not Detected 08/18/2024 3:15 AM [facility] METHADONE, QUALITATIVE Not Detected Not Detected 08/18/2024 3:15 AM [facility] BARBITURATES,QU AL Not Detected Not Detected 08/18/2024 3:15 AM [facility] OXYCODONE, QUALITATIVE Not Detected Not Detected 08/18/2024 3:15 AM [facility] BUPRENORPHINE, QUALITATIVE Not Detected Not Detected 08/18/2024 3:15 AM [facility] Urine URINE SPECIMEN / Unknown Non-Blood / Unknown 08/18/2024 2:39 AM [facility] 08/18/2024 2:[address] [facility] - 08/18/2024 3:15 AM [facility] Please Note: ?? This is a screening test only, all results are unconfirmed and should be used for medical purposes only. ??Unconfirmed results must not be used for non-medical purposes (e.g., employment testing, legal testing). ??Suggest analyte specific confirmation for all non-negative results. ??Specimens will be held for 24 hours if additional testing is needed. ?? The following threshold concentrations are used for this analysis: ? Drug ? Screening Threshold ? Buprenorphine ? 10 ng/mL PCP ? 25 ng/mL ?? THC Metabolites ? 50 ng/mL *Opiates ? 100 ng/mL Oxycodone ?100 ng/mL Cocaine ?150 ng/mL Benzodiazepines ?150 ng/mL ?? Methadone ?200 ng/mL ?? Barbiturates ? 200 ng/mL Tricyclic Antidepressants ?300 ng/mL ?? Amphetamines ? 500 ng/mL ?? Methamphetamines ? 500 ng/mL ?*Includes related compounds: ? Codeine ?50 ng/mL ? Heroin ?100 ng/mL ? Morphine ?100 ng/mL ? Hydrocodone ? 400 ng/mL ? Hydromorphone ? 800 ng/mL ?Venlafaxine (Effexor) is a known cross reactant in the PCP ?assay. ??If clinically indicated, order PCP confirmation. Ashley Cooney NP URINE [facility] [address] [place] [address], * SCAN-CARDIAC STRIP (08/17/2024 8:00 PM FACILITIES MAINTENANCE ENGINEER) Scanner OTHER * XR ABDOMEN 1 VIEW PORTABLE (08/17/2024 3:10 PM FACILITIES MAINTENANCE ENGINEER) Anatomical Region Laterality Modality Abdomen Digital Radiogra phy 08/17/2024 3:19 PM FACILITIES MAINTENANCE ENGINEER Impressions 08/17/2024 3:19 PM FACILITIES MAINTENANCE ENGINEER 1. ??Feeding tube terminates within the mid stomach. Dictated by Nilson Barajas MD @ Nov ??3 2023 ??3:19PM (Electronically Signed) [email or web address] Narrative 08/17/2024 3:19 PM FACILITIES MAINTENANCE ENGINEER For Patients: ??As a result of the Cures Act, medical imaging exams and procedure reports are released immediately into your electronic medical record. ??You may view this report before your referring provider. ??If you have questions, please contact your health care provider. HISTORY: Tube placement. TECHNIQUE: One view of the abdomen. COMPARISON: No prior. FINDINGS: Feeding tube terminates within the mid stomach. Gas within nondilated colon. Prior lumbar fusion. Procedure Note Nilson Barajas MD - 08/17/2024 For Patients: As a result of the Cures Act, medical imagingexams and procedure reports are released immediately into your electronicmedical record. You may view this report before your referring provider.If you have questions, please contact your health care provider. HISTORY: Tube placement. TECHNIQUE: One view of the abdomen. COMPARISON: No prior. FINDINGS: Feeding tube terminates within the mid stomach. Gas within nondilatedcolon. Prior lumbar fusion. IMPRESSION: 1. Feeding tube terminates within the mid stomach. Dictated by Nilson Barajas MD @ Nov 2023 3:19PM (Electronically Signed) [email or web address] Daniel Smyth RN GENERAL IMAGING * MR Head without contrast (08/17/2024 9:32 AM FACILITIES MAINTENANCE ENGINEER) Anatomical Region Laterality Modality BRAIN, HEAD Magnetic Resonan ce 08/17/2024 9:58 AM FACILITIES MAINTENANCE ENGINEER Narrative 08/17/2024 9:58 AM FACILITIES MAINTENANCE ENGINEER For Patients: ??As a result of the Cures Act, medical imaging exams and procedure reports are released immediately into your electronic medical record. ??You may view this report before your referring provider. ??If you have questions, please contact your health care provider. Indication: Stroke, follow-up. Technique: Multisequence multiplanar MRI of the brain without the use of intravenous contrast. Comparison: Correlated with CT head from earlier the same day 08/17/2024 at 6:11 a.m.. Findings: Diffusion restriction throughout the right MCA territory with associated gyral swelling. The majority of the signal abnormality demonstrates minimal associated T2/FLAIR hyperintensity. No abnormal susceptibility artifact. Probable old lacunar type infarct in the left cerebellum (series 9, image 9). The ventricles are normal in size. The imaged ICA flow voids are preserved. Bone marrow signal intensity of the calvarium is within normal limits. The orbits are unremarkable. The paranasal sinuses and mastoid air cells are predominantly clear. Impression: 1. Diffuse restriction throughout the right MCA territory consistent with acute ischemia. 2. No evidence of hemorrhagic conversion. 3. Probable chronic lacunar type infarct within the left cerebellum. Dictated by Ramsey Rowley MD @ 08/17/2024 9:58:30 AM (Electronically Signed) Procedure Note Homero Rowley MD - 08/17/2024 For Patients: As a result of the Century Cures Act, medical imagingexams and procedure reports are released immediately into your electronicmedical record. You may view this report before your referring provider.If you have questions, please contact your health care provider. Indication: Stroke, follow-up. Technique: Multisequence multiplanar MRI of the brain without the use of intravenouscontrast. Comparison: Correlated with CT head from earlier the same day 08/17/2024 at 6:11a.m.. Findings: Diffusion restriction throughout the right MCA territory with associatedgyral swelling. The majority of the signal abnormality demonstratesminimal associated T2/FLAIR hyperintensity. No abnormal susceptibilityartifact. Probable old lacunar type infarct in the left cerebellum (series9, image 9). The ventricles are normal in size. The imaged ICA flow voids arepreserved. Bone marrow signal intensity of the calvarium is within normal limits. Theorbits are unremarkable. The paranasal sinuses and mastoid air cells arepredominantly clear. Impression: 1. Diffuse restriction throughout the right MCA territory consistent withacute ischemia. 2. No evidence of hemorrhagic conversion. 3. Probable chronic lacunar type infarct within the left cerebellum. Dictated by Ramsey Rowley MD @ 08/17/2024 9:58:30 AM (Electronically Signed) Pablo Stein MD MR * (ABNORMAL) Hemoglobin A1C Screening (08/17/2024 5:00 AM FACILITIES MAINTENANCE ENGINEER) HEMOGLOBIN A1C SCREENING 6.6(H) <=6.4 % 08/17/2024 3:32 PM FACILITIES MAINTENANCE ENGINEER [facility] Blood BLOOD SPECIMEN / Unknown Venipuncture / Unknown 08/17/2024 5:00 AM FACILITIES MAINTENANCE ENGINEER 08/17/2024 5:23 AM FACILITIES MAINTENANCE ENGINEER Narrative [facility] - 08/17/2024 3:32 PM FACILITIES MAINTENANCE ENGINEER ? (<5.7%) ?Normal ? (5.7% to 6.4%) ? Indicates prediabetes ? (>=6.5%) ? Confirms diabetes Falsely low levels may be seen with: Recent Transfusion, Recent Significant Blood Loss, Hemolytic Diseases, or Falsely elevated levels may be seen with: Untreated Anemias, Splenectomy Pablo Stein MD CHEMISTRY [facility] [address] [place] [id number], * aPTT (08/17/2024 5:00 AM FACILITIES MAINTENANCE ENGINEER) APTT 28 25 - 36 sec 08/17/2024 5:37 AM FACILITIES MAINTENANCE ENGINEER [facility] Blood BLOOD SPECIMEN / Unknown Venipuncture / Unknown 08/17/2024 5:00 AM FACILITIES MAINTENANCE ENGINEER 08/17/2024 5:23 AM FACILITIES MAINTENANCE ENGINEER Narrative [facility] - 08/17/2024 5:37 AM FACILITIES MAINTENANCE ENGINEER Therapeutic Range: 59-89 seconds Pablo Stein MD HEMATOLOGY Performing Organization Address [facility] de Phone Number [facility] [address] [place] [id number], * Protime - INR (08/17/2024 5:00 AM FACILITIES MAINTENANCE ENGINEER) INR 1.0 <1.3 08/17/2024 5:37 AM FACILITIES MAINTENANCE ENGINEER [facility] PROTIME 11.8 10.6 - 12.4 sec 08/17/2024 5:37 AM FACILITIES MAINTENANCE ENGINEER [facility] Blood BLOOD SPECIMEN / Unknown Venipuncture / Unknown 08/17/2024 5:00 AM FACILITIES MAINTENANCE ENGINEER 08/17/2024 5:23 AM FACILITIES MAINTENANCE ENGINEER Narrative [facility] - 08/17/2024 5:37 AM FACILITIES MAINTENANCE ENGINEER ?Therapeutic Range 2.0-3.0 for most anticoagulated patients 2.5-3.5 or 4.0 for high risk patients The INR is only used for patients on stable oral anticoagulant therapy. It makes no significant contribution to the diagnosis or treatment of patients whose Protime is prolonged for other reasons. INR results are increased when heparin levels exceed 1.0 U/mL, which corresponds to an aPTT >125 seconds if the patient is on UFH. Pablo Stein MD HEMATOLOGY Performing Organization Address [facility] de Phone Number [facility] [facility] [address] [place] [address], * (ABNORMAL) Lipid Panel (08/17/2024 5:00 AM FACILITIES MAINTENANCE ENGINEER) CHOLESTEROL,TOTAL 226(H) 100 - 199 mg/dL 08/17/2024 5:52 AM FACILITIES MAINTENANCE ENGINEER [facility] Comment: Cholesterol, Total Reference Ranges Desirable <200 mg/dL Borderline 200-239 mg/dL High >=240 mg/dL TRIGLYCERIDES 89 <150 mg/dL 08/17/2024 5:52 AM FACILITIES MAINTENANCE ENGINEER [facility] HDL CHOLESTEROL 53 >40 mg/dL 5:52 AM FACILITIES MAINTENANCE ENGINEER [facility] NON-HDL CHOLESTEROL 173(H) <145 mg/dl 08/17/2024 5:52 AM FACILITIES MAINTENANCE ENGINEER [facility] CHOL/HDL RATIO 4.26 <4.50 08/17/2024 5:52 AM FACILITIES MAINTENANCE ENGINEER [facility] LDL CHOLESTEROL 155(H) <=130 mg/dL 08/17/2024 5:52 AM FACILITIES MAINTENANCE ENGINEER [facility] VLDL CHOLESTEROL 18 <=30 mg/dL 08/17/2024 5:52 AM FACILITIES MAINTENANCE ENGINEER [facility] PROVIDER ORDERED STATUS RANDOM 08/17/2024 5:52 AM FACILITIES MAINTENANCE ENGINEER [facility] Blood BLOOD SPECIMEN / Unknown Venipuncture / Unknown 08/17/2024 5:00 AM FACILITIES MAINTENANCE ENGINEER 08/17/2024 5:23 AM FACILITIES MAINTENANCE ENGINEER Pablo Stein MD CHEMISTRY [facility] [address] [place] [id number], * SCAN-CARDIAC STRIP (08/17/2024 1:38 AM CDT) Scanner OTHER * (ABNORMAL) Hemoglobin A1C (08/16/2024 10:55 PM CDT) HEMOGLOBIN A1C MONITORING (POCT) 6.6(H) <=6.4 % 08/17/2024 3:58 PM FACILITIES MAINTENANCE ENGINEER [facility] Blood BLOOD SPECIMEN / Unknown Butterfly / Unknown 08/16/2024 10:55 PM CDT 08/16/2024 11:01 PM CDT Narrative [facility] - 08/17/2024 3:58 PM FACILITIES MAINTENANCE ENGINEER ? (<=6.9%) ? Indicates good control ? (7.0% to 7.9%) ? Indicates fair control ? (>=8.0%) ? Indicates poor control ?? NOTE: ??These thresholds are guidelines and ?individual targets may vary. Falsely low levels may be seen with: Recent Transfusion, Recent Significant Blood Loss, Hemolytic Diseases, or Falsely elevated levels may be seen with: Untreated Anemias, Splenectomy ? Cierra Welch DO CHEMISTRY [facility] [address] [place] [address], * SCAN-CARDIAC STRIP (08/16/2024 10:07 PM CDT) Scanner OTHER * IR ANGIO NEURO-INTERVENTIONAL (08/16/2024 9:44 PM CDT) Anatomical Region Laterality Modality X-Ray Angiograph y Impressions 08/16/2024 9:54 PM CDT Successful mechanical thrombectomy of an embolus to the right M2 segment with the YOANA+ and 3Max aspiration catheters using the ADAPT technique, achieving near-complete reperfusion of the middle cerebral artery territory (TICI 2c). Findings were discussed with Dr. Welch at the end of the procedure. Lauryn Aguayo M.D. Neurointerventional Radiologist [facility] [place] Pager: Office/Referrals: [facility]: [email or web address] Narrative 08/16/2024 9:54 PM CDT PROCEDURE: 1. Transarterial mechanical thrombectomy (CPT 80972): Right M2 segment embolus. 2. Cerebral angiography: Right internal carotid carotid artery. 3. Ultrasound guidance for vascular access (CPT +36407): right common femoral artery. 4. Angioseal hemostatic closure device placement. DATE: 08/16/2024. HISTORY: 54 patient with a right M2 segment embolus presents for mechanical thrombectomy. PHYSICIAN: Dr. Aguayo. MEDICATIONS: 1% buffered Lidocaine (local). SAMPLES: None. POST-PROCEDURE DIAGNOSIS: Status post successful mechanical thrombectomy of an embolus to the right M2 segment with the YOANA+ and 3Max reperfusion catheter using the ADAPT technique. ARTERIAL PUNCTURE TIME: 21:11. ?? REPERFUSION TIME: 21:36. INITIAL TICI SCORE: 2a ?? FINAL TICI SCORE: 2c. PROCEDURE AND FINDINGS: The procedure was performed under emergent consent as the patient was aphasic and family was not immediately available. Immediately prior to arterial puncture, a brief time out was performed to confirm the patient's identity, thrombus location and planned procedure. The procedure was performed under minimal monitored conscious sedation. Both groins were prepped and draped in the usual sterile fashion with Betadine. Next, the right femoral head was localized fluoroscopically and buffered 1% lidocaine was injected for local anesthesia. After successfully identifying a patent vessel and permanently archiving a picture for the patient's record, using ultrasound guidance a micropuncture needle was utilized with a single-wall puncture technique to perform a right common femoral percutaneous arterial puncture and a 8-Chilean sheath was placed. A 6 [place]an Penumbra Select catheter was introduced inside a Neuron Max 088 catheter and this construct was introduced in the sheath and the right internal carotid artery was then selected with a glidewire. A contrast injection was then performed, which confirmed that there was a right M2 segment occlusion with filling of the distal vasculature via pial collaterals. Then, we introduced a YOANA+ aspiration catheter into the Neuron Max 088 and advanced it until the aspiration catheter was past the ophthalmic artery and up to the thrombus. We then proceeded to aspirate the thrombus with the aspiration catheter using the ADAPT technique. After a 120-second waiting period under continuous aspiration, gentle forward force was applied on the aspiration catheter. We then withdrew the aspiration catheter slowly until blood flow was restored in the tubing, which occurred in the supraclinoid ICA segment. A contrast injection via the aspiration catheter demonstrated that this maneuver had removed some of the thrombus in the middle cerebral artery (TICI 2b). After a second ADAPT pass using a combination of the 3Max and YOANA+ aspiration catheters, we achieved near-complete reperfusion of the right middle cerebral artery territory (TICI 2c). At the conclusion of the study, contrast was injected at this site to evaluate the common femoral artery puncture site prior to placement of the Angioseal hemostatic device. The patient was transported to the Neuro-ICU in stable condition. Lauryn Aguayo MD IR * SCAN-CARDIAC STRIP (08/16/2024 12:00 AM CDT) Narrative 08/16/2024 12:00 AM CDT Ordered by an unspecified provider. Other Clinical Staff OTHER from Last 3 Months Advance Directives * Full Code (Latest Code Status on File) Date Activated Date Inactivated Comments 08/19/2024 8:26 AM Question Answer Comments Code Status Discussion: Reviewed Preferences * Full Code Date Activated Date Inactivated Comments 08/16/2024 10:26 PM 08/19/2024 8:26 AM Question Answer Comments Code Status Discussion: Unable to Assess Preferences, Provider to review later Care Teams Pack Changer Relationship Specialty Start Date End Date Carl Thompson MD [address] [place] [address] PCP - General 08/05/12
--- OUTSIDE RECORDS SUMMARY | 2024-08-19 11:52 | XMS_ITS | Continuity of Care Document ---
Author Organization [facility] enter Address [address] [place] [address] Phone Care Team Providers Care City Sanitarian Name Role Phone [facility] Unavailable Unava ilable Procedures Procedure Date [...] Diagnoses Date Provider Providers Copied on Encounter [facility], [address] [place] [address], [id number], [place] tel:[phone] [facility] No Information [facility]. [address] [place] [address], [id number], [place]. tel:[phone] Referring Provider: Shakila Orellana, [address] [place], [address] . tel:[phone] [facility], [address] [place] [address], [id number], tel:[phone] [place] [address] [facility]. [address] [place] [address], [id number], [place]. tel:[phone] Referring Provider: Shakila Orellana, [address] [place], [address] . tel:[phone] [place] [address], [address] [place] [address], [id number], tel:[phone] [place] [address] [facility]. [address] [place] [address], [id number], [place]. tel:[phone] Referring Provider: Shakila Orellana, [address] [place], [address] . tel:[phone] [facility], [address] [place] [address], [id number], tel:[phone] [place] [address] [facility]. [address] [place] [address], [id number], [place]. tel:[phone] Referring Provider: Shakila Orellana, [address] [place], [address] . tel:[phone] [place] [address], [address] [place] [address], [id number], [place] tel:[phone] [place] [address] [facility]. [address] [place] [address], [id number], [place]. tel:[phone] Referring Provider: Shakila Orellana, [address] [facility], [place], [address] . tel:[phone] [facility], [address] [place] [address], [id number], tel:[phone] [facility] No Information [address] [facility]. [address] [place] [address], [id number], . tel:[phone] Referring Provider: Shakila Orellana, [address] [facility], [place], [address] . tel:[phone] [facility], [address] [place] [address], [id number], tel:[phone] [place] [address] [facility]. [address] [place] [address], [id number], . tel:[phone] Referring Provider: Antonio Collins [facility] [address], [place], [address]. tel:[phone] [facility], [address] [place] [address], [id number], tel:[phone] [place] [address] [facility]. [address] [place] [address], [id number], . tel:[phone] Referring Provider: Antonio Collins [facility] [address], [place], [address]. tel:[phone] Family History Family Member Type Diagnosis Age At Onset No Information Payers Payer name Insurance type Covered republican ID Authoriza tion(s) No Information Social History Type Description Quantity Date Captured Comments Sex Female Smoking Status No Information Gender Identity [id number] (FTM) /Transgender Male/Trans Man Chief Complaint And [...]
== END 2024-08-16 18:25 | disposition home or self-care (01) ==
LOC: AMB 08-19 11:50
PROVIDERS: PCP Internal Medicine; Visit Provider Emergency Medicine Emergency Medical Services
DX: R29.810 Facial weakness (principal); R51.9 Headache, unspecified; R53.1 Weakness
CPT/HCPCS: A0425; A0427

== ENCOUNTER 2024-08-16 19:05 | Emergency (ER) | payer BC, SELFPAY ==
[2024-08-16] VITALS (9 sets, daily range): BP systolic 115–172; BP diastolic 92–122; PULSE 100–112; RESP 16–20; O2SAT 94–99
--- NOTE | 2024-08-16 19:06 | CRLHL7_ITS ---
For Patients: As a result of the Century Cures Act, medical imaging exams and procedure reports are released immediately into your electronic medical record. You may view this report before your referring provider. If you have questions, please contact your health care provider. Indication: STROKE SYMPTOMS, LT SIDES WEAKNESS Technique: CT of the head without contrast. Coronal and sagittal reformats. Bone and soft tissue windows. Comparison: No prior studies available for comparison at this institution. Findings: No acute intracranial hemorrhage or extra-axial collection. No evidence of acute cortical infarction. No mass effect or midline shift. Normal cerebral volume. The ventricles are normal in size, shape and contour. There is normal de paz and white matter differentiation. The orbital contents are normal. No calvarial fractures. No lytic or sclerotic osseous lesions within the calvarium or skull base. Scalp and other imaged soft tissue structures are normal. Mastoid air cells are clear. Paranasal sinuses are well aerated. Impression: No acute intracranial abnormality. Please note that all CT scans at this facility use dose modulation, iterative reconstruction, and/or weight-based dosing when appropriate to reduce radiation dose to as low as reasonably achievable. Dictated by Joe Loja MD @ 08/16/2024 7:33:20 PM (Electronically Signed)
--- NOTE | 2024-08-16 19:16 | CRLHL7_ITS ---
For Patients: As a result of the Century Cures Act, medical imaging exams and procedure reports are released immediately into your electronic medical record. You may view this report before your referring provider. If you have questions, please contact your health care provider. CT ANGIOGRAM NECK DATE: 08/16/2024 CLINICAL HISTORY: Patient with focal neurological deficits. TECHNIQUE: Standard helical CT image acquisition of the neck up to the skull base after bolus intravenous contrast enhancement. 2D and 3D MIP images for post-processing were performed and interpreted on an independent workstation and 3D images were permanently archived. COMPARISON: CT same day. FINDINGS: The origins of the great vessels from the aortic arch are patent. The origin of the right vertebral artery is patent. The origin of the left vertebral artery is patent. The common carotid arteries are patent. There is no stenosis at the origin of the right internal carotid artery. There is no stenosis at the origin of the left internal carotid artery. The rest of the cervical segments of the internal carotid arteries are patent up to the skull base. The right vertebral artery is dominant. The cervical segments of the vertebral arteries are patent up to the skull base. The visualized lung apices are unremarkable. The thyroid gland is unremarkable. The soft tissues of the neck are unremarkable. There are degenerative changes in the cervical spine. IMPRESSION: Patent cervical vasculature. Findings were discussed with Dr. Méndez at 7:35 PM. Please note that all CT scans at this facility use dose modulation, iterative reconstruction, and/or weight-based dosing when appropriate to reduce radiation dose to as low as reasonably achievable. Dictated by: Lauryn Aguayo MD @ 08/16/2024 19:36:54 (Electronically Signed)
--- NOTE | 2024-08-16 19:16 | CRLHL7_ITS ---
For Patients: As a result of the Century Cures Act, medical imaging exams and procedure reports are released immediately into your electronic medical record. You may view this report before your referring provider. If you have questions, please contact your health care provider. CT ANGIOGRAM HEAD DATE: 08/16/2024 CLINICAL HISTORY: Patient with focal neurological deficits. TECHNIQUE: Standard helical CT image acquisition through the intracranial circulation following intravenous administration of contrast material with bolus tracking. 2D and 3D MIP images for post-processing were performed and interpreted on an independent workstation and 3D images were permanently archived. COMPARISON: CT same day. FINDINGS: There is a right M2 segment occlusion. There is no intracranial aneurysm. The right internal carotid artery is normal. The right anterior cerebral artery and its branches are normal. The left internal carotid artery is normal. The left middle cerebral artery and its branches are normal. The left anterior cerebral artery and its branches are normal. The anterior communicating artery is well visualized and appears normal. The right vertebral artery and PICA are normal. The left vertebral artery and PICA are normal. The right vertebral artery is dominant. The basilar artery is patent and appears normal. The right posterior cerebral artery is normal. The left posterior cerebral artery is normal. IMPRESSION: Right M2 segment occlusion. Findings were discussed with Dr. Méndez at 7:30 PM. Please note that all CT scans at this facility use dose modulation, iterative reconstruction, and/or weight-based dosing when appropriate to reduce radiation dose to as low as reasonably achievable. Dictated by: Lauryn Aguayo MD @ 08/16/2024 19:38:43 (Electronically Signed)
[2024-08-16] MEDS: LABETALOL HCL 5 MG/ML inj IVP ×2 (19:40→19:56)
[2024-08-16] MEDS: TENECTEPLASE 5 MG/ML inj 25 MG IVP (19:46)
--- NOTE | 2024-08-16 19:58 | ED.NEUROSD ---
HPI - Neuro Symptoms/Deficit General Date Seen: 08/16/24 Chief Complaint: Neuro Symptoms/Altered Deficit Stated Complaint: possible stroke Time Seen by Provider: 08/16/24 19:28 Source: patient, EMS, RN notes reviewed and old records reviewed Mode of arrival: EMS Limitations: altered mental status and physical limitation History of Present Illness HPI Narrative: Patient is a 54-year-old male, presents here with acute onset at 18 10 left arm left leg weakness, associated with right facial droop. And slurring of speech. 0 is also last known well, patient did have a migraine headache earlier today but does not get hemiplegic migraines or any neurologic symptoms with them. Did take some nonsteroidal anti-inflammatory drug earlier. This occurred approximately 530 according to the patient. Patient is brought in by EMS, patient is initially seen in the [facility], transferred to [place]. No previous history of CVAs, is on no anticoagulants, no history of falls injuries fevers chills and was otherwise well today except with a migraine. Stroke code is called, patient is a tended by Dr. De León neurologist from [facility]. Location: speech, right face, left arm and left leg History of same: No Severity: severe Quality: weak Relieving factors: none Exacerbating factors: none Context: sudden onset On Anticoagulants: No Treatments Prior to Arrival: none Related Data Home Medications ?Medication ?Instructions ?Recorded ?Confirmed Canabis PO 06/15/22 06/12/24 glucosamine-chondroitin 500 mg-400 1 cap PO QDAY 06/15/22 06/12/24 mg capsule potassium gluconate 595 mg (99 mg) 595 mg PO QDAY 06/15/22 06/12/24 tablet cetirizine 10 mg tablet (All Day 10 mg PO QDAY PRN 09/12/23 06/12/24 Allergy (cetirizine)) Previous Rx's ?Medication ?Instructions ?Recorded testosterone (AndroGel) 2 pump topical QDAY Transgender 09/12/23 #75 grams orphenadrine citrate 100 mg 100 mg PO ONCE PRN pain (scale 11/26/23 tablet,extended release score 7-10) #90 tabs celecoxib 100 mg capsule (Celebrex) 200 mg (2 x 100 mg) PO QDAY Pain 06/04/24 #120 caps baclofen 10 mg tablet 10 mg PO TID PRN pain #90 tabs 06/12/24 prednisone 20 mg tablet 20 mg PO BID #10 tabs 06/12/24 escitalopram oxalate 20 mg tablet 20 mg PO DAILY for anxiety #30 tabs 07/04/24 furosemide 20 mg tablet 10 mg (1/2 x 20 mg) PO BID for 07/04/24 edema #30 tabs methylphenidate HCl 36 mg 36 mg PO QDAY #30 tabs 07/04/24 tablet,extended release 24 hr Allergies Allergy/AdvReac Type Severity Reaction Status Date / Time No Known Allergies Allergy Unknown unkown Uncoded 06/12/24 16:22 Review of Systems Status of ROS: Reports: 10 or more systems reviewed and unremarkable except as noted in History and below [facility] Medical History Skin tag ?L91.8 - Other hypertrophic disorders of the skin (ICD-10) Allergies ?T78.40XA - Allergy, unspecified, initial encounter (ICD-10) Joint pain ?M25.50 - Pain in unspecified joint (ICD-10) Anxiety ?F41.9 - Anxiety disorder, unspecified (ICD-10) Transgender ?Z78.9 - Other specified health status (ICD-10) Social History Narrative: Female -to-male transgender person Smoking Status: Never smoker Little interest or pleasure in doing things: not at all Feeling down, depressed, or hopeless: not at all Exam Narrative: Exam Narrative: On examination there is profuse weakness of the left upper extremity and left lower extremity, right facial droop is noted, with IV deviation to the right. During the time course in CT, into the room 8 he did regain some proximal strength, of his shoulder, and also of the left lower extremity. There is however completely weak left senior project coordinator, and an obvious drift on the left. There is a question of visual insert field loss on the left there is definitely left-sided neglect, pupils are otherwise equal and reactive to light, oropharynx otherwise normal, neck is supple no evidence of trauma of the head and neck region, chest is good air entry bilaterally no wheezing crackles noted heart sounds are normal abdomen is soft there is no guarding no organomegaly, Const: Vital Signs, click to edit/add: Vital Signs - 24 hr 08/16/24 19:05 Pulse Rate [Pulse Oximeter] 100 Respiratory Rate 20 Blood Pressure [Ri ght Upper Arm] 143/103 H Pulse Oximetry 95 Oxygen Delivery Me thod Room Air Documenting provider has reviewed patient's vital signs: yes Course Course ED Course: Patient was seen, tele stroke saw patient, there is a right M2 occlusion noted. On CTA of the head. Plain CT did not show any evidence of a bleed, patient did receive 10 mg of labetalol to bring the diastolic pressure under 105. After discussion with the patient, over the risks benefits of the use of tenecteplase, he agreed to this this was given under the guidance of Dr. De León stroke neurologist. At this point we will transfer by air to [facility], likely will need clot retrieval. Consultations Consultation #1: Sarthak Naik stroke neurologist, ER physician at [facility] Vital Signs Vital signs: Initial Vital Signs Pulse Rate 100 08/16/24 19:05 Respiratory Rate 20 08/16/24 19:05 Blood Pressure 143/103 H 08/16/24 19:05 Blood Pressure Mean 116 H 08/16/24 19:05 Blood Pressure Position Supine 08/16/24 19:05 Pulse Oximetry 95 08/16/24 19:05 Oxygen Delivery Method Room Air 08/16/24 19:05 Vital Signs Pulse Rate 100 08/16/24 19:05 Respiratory Rate 20 08/16/24 19:05 Blood Pressure 143/103 H 08/16/24 19:05 Pulse Oximetry 95 08/16/24 19:05 Oxygen Delivery Method Room Air 08/16/24 19:05 Pulse Rate 100 08/16/24 19:05 Respiratory Rate 20 08/16/24 19:05 Blood Pressure 143/103 H 08/16/24 19:05 Pulse Oximetry 95 08/16/24 19:05 Oxygen Delivery Method Room Air 08/16/24 19:05 Medications Administered Medications: Generic Name Dose Route Start Last Admin Trade Name Freq PRN Reason Stop Dose Admin Labetalol HCl 5 - 10 mg 08/16/24 19:39 08/16/24 19:40 Labetalol Hcl 5 Mg/Ml Inj IVP 10 mg ONCE PRN Administration Hypertension Discontinued Medications Generic Name Dose Route Start Last Admin Trade Name Freq PRN Reason Stop Dose Admin Tenecteplase 25 mg 08/16/24 19:31 08/16/24 19:46 Tenecteplase 5 Mg/Ml Inj IVP 08/16/24 19:32 25 mg ONCE ONE Administration MDM - Neuro Symptoms/Deficit MDM Narrative Medical decision making narrative: Life-threatening differential diagnosis considered include stroke, coronary artery disease, pneumonia, and heart failure. Other differential diagnosis include but are not limited to electrolyte imbalances, anemia, medication reactions, and urinary tract infection Medical Records Attestation: I reviewed the patient's medical records. Imaging Data CT scan - head: Attestation: I have reviewed the pertinent imaging results. Radiologist's impression: atient: DIONI DAWSON Facility:?[facility] Patient ID:?[id number] Site Patient ID:?[id number]. Site :?1970 Study:?CT-Head Angio Angio CTA HEAD W/ STROKE PROTOCOL-08/16/2024 7:22:48 PM Ordering Physician:Angely Feliciano Preliminary Report: CT ANGIOGRAM HEAD DATE: 08/16/2024 CLINICAL HISTORY: Patient with focal neurological deficits. TECHNIQUE: Standard helical CT image acquisition through the intracranial circulation following intravenous administration of contrast material with bolus tracking. 2D and 3D MIP images for post-processing were performed and interpreted on an independent workstation and 3D images were permanently archived. COMPARISON: CT same day. FINDINGS: There is a right M2 segment occlusion. There is no intracranial aneurysm. The right internal carotid artery is normal. The right anterior cerebral artery and its branches are normal. The left internal carotid artery is normal. The left middle cerebral artery and its branches are normal. The left anterior cerebral artery and its branches are normal. The anterior communicating artery is well visualized and appears normal. The right vertebral artery and PICA are normal. The left vertebral artery and PICA are normal. The right vertebral artery is dominant. The basilar artery is patent and appears normal. The right posterior cerebral artery is normal. The left posterior cerebral artery is normal. IMPRESSION: Right M2 segment occlusion. Findings were discussed with Dr. Méndez at 7:30 PM. Read by:?Lauryn Aguayo MD @08/16/2024 7:38:43 PM cility:?[facility] Patient ID:?[id number] Site Patient ID:?[id number]. Site :?1970 Study:?CT-Neck Angio Angio CTA NECK W/ STROKE PROTOCOL-08/16/2024 7:21:32 PM Ordering Physician:Angely Feliciano Preliminary Report: CT ANGIOGRAM NECK DATE: 08/16/2024 CLINICAL HISTORY: Patient with focal neurological deficits. TECHNIQUE: Standard helical CT image acquisition of the neck up to the skull base after bolus intravenous contrast enhancement. 2D and 3D MIP images for post-processing were performed and interpreted on an independent workstation and 3D images were permanently archived. COMPARISON: CT same day. FINDINGS: The origins of the great vessels from the aortic arch are patent. The origin of the right vertebral artery is patent. The origin of the left vertebral artery is patent. The common carotid arteries are patent. There is no stenosis at the origin of the right internal carotid artery. There is no stenosis at the origin of the left internal carotid artery. The rest of the cervical segments of the internal carotid arteries are patent up to the skull base. The right vertebral artery is dominant. The cervical segments of the vertebral arteries are patent up to the skull base. The visualized lung apices are unremarkable. The thyroid gland is unremarkable. The soft tissues of the neck are unremarkable. There are degenerative changes in the cervical spine. IMPRESSION: Patent cervical vasculature. Findings were discussed with Dr. Méndez at 7:35 PM. Read by:?Lauryn Aguayo MD @08/16/2024 7:36:54 PM Patient: DIONI DAWSON Facility:?[facility] Patient ID:?[id number] Site Patient ID:?[id number]. Site :?1970 Study:?CT-Head W/O STROKE PROTOCOL-08/16/2024 7:14:33 PM Ordering Physician:?NAVIN AGUILAR Final Report: Indication: STROKE SYMPTOMS, LT SIDES WEAKNESS Technique: CT of the head without contrast. Coronal and sagittal reformats. Bone and soft tissue windows. Comparison: No prior studies available for comparison at this institution. Findings: No acute intracranial hemorrhage or extra-axial collection. No evidence of acute cortical infarction. No mass effect or midline shift. Normal cerebral volume. The ventricles are normal in size, shape and contour. There is normal de paz and white matter differentiation. The orbital contents are normal. No calvarial fractures. No lytic or sclerotic osseous lesions within the calvarium or skull base. Scalp and other imaged soft tissue structures are normal. Mastoid air cells are clear. Paranasal sinuses are well aerated. Impression: No acute intracranial abnormality. Please note that all CT scans at this facility use dose modulation, iterative reconstruction, and/or weight-based dosing when appropriate to reduce radiation dose to as low as reasonably achievable. Dictated by Joe Loja MD @ 08/16/2024 7:33:20 PM (Electronic Signature) ECG Data Attestation: I personally reviewed and interpreted this ECG as follows: ECG interpretation date: 08/16/24 Prior ECG tracings: not available for review Interpretation: EKG shows normal sinus rhythm, ventricular rate was 71, no acute ST wave changes occasional PACs. Normal QRS QT and QTC Critical Care Time Critical Care Time Critical Care Time: Yes Attestation: The patient required my highest level preparedness to intervene emergently and I personally spent this critical care time directly and personally managing the patient. This critical care time included: Obtaining a history; Examining the patient; Pulse oximetry; Ordering and reviewing of studies; Arranging urgent treatment with development of a management plan; Evaluation of patients response to treatment; Frequent reassessment discussions with other providers. This critical care time was performed to assess and manage the high probability of imminent life-threatening deterioration that could result in multiorgan failure. It was exclusive of separate billable procedures and treating other patients and teaching time. Total Critical Care Time in Minutes: 45 Discharge Plan Discharge Clinical Impression: Acute CVA (cerebrovascular accident), Transgender Patient Disposition: Xfer [facility] Prescriptions: No Action potassium gluconate 595 mg (99 mg) tablet 595 mg PO QDAY glucosamine-chondroitin 500-400 mg capsule 1 cap PO QDAY Canabis PO cetirizine [All Day Allergy (cetirizine)] 10 mg tablet 10 mg PO QDAY PRN testosterone [AndroGel] 20.25 mg/1.25 gram (1.62 %) gel in metered-dose pump 2 pump topical QDAY Qty: 75 0RF Rx Instructions: apply 1 pump amount over max area of EACH upper arm and shoulder prednisone 20 mg tablet 20 mg PO BID Qty: 10 0RF baclofen 10 mg tablet 10 mg PO TID PRN (Reason: pain) Qty: 90 3RF orphenadrine citrate 100 mg tablet extended release 100 mg PO ONCE PRN (Reason: pain (scale score 7-10)) Qty: 90 3RF celecoxib [Celebrex] 100 mg capsule 200 mg PO QDAY Qty: 120 2RF escitalopram oxalate 20 mg tablet 20 mg PO DAILY Qty: 30 5RF furosemide 20 mg tablet 10 mg PO BID Qty: 30 5RF methylphenidate HCl 36 mg tablet extended release 24hr 36 mg PO QDAY Qty: 30 0RF Stand Alone Forms: MyHealth Info Instructions
[2024-08-16] MEDS: ASPIRIN 81 MG TAB.CHEW 324 MG PO (20:05)
--- OUTSIDE RECORDS SUMMARY | 2024-08-16 20:21 | XMS_ITS | Continuity of Care Document ---
Author Organization [facility] enter Address [address] [place] [address] Phone Care Team Providers Care Peoplesoft Taleo Manager Name Role Phone [facility] Unavailable Unava ilable Procedures Procedure Date MAJOR JOINT OR BURSA INJ WITH ULTRASOUND INJ FORAMEN EPIDURAL L/S INJ FORAMEN EPIDURAL L/S MAJOR JOINT OR BURSA INJ WITH ULTRASOUND MAJOR JOINT OR BURSA INJ WITH ULTRASOUND Inj for sacroiliac jt anesth Inj for sacroiliac jt anesth INJ FORAMEN EPIDURAL L/S MAJOR JOINT OR BURSA INJ WITH ULTRASOUND MAJOR JOINT OR BURSA INJ WITH ULTRASOUND Inj for sacroiliac jt anesth Inj for sacroiliac jt anesth INJ FORAMEN EPIDURAL L/S INJ FORAMEN EPIDURAL L/S Advance Directives Directive Yes / No Effective Date File Name No Information Encounters Encounter Description Practice Location Reason(s) For Visit Diagnoses Date Provider Providers Copied on Encounter [facility], [address] [place] [address], [id number], [place] tel:[phone] [facility] No Information [facility]. [address] [place] [address], [id number], [place]. tel:[phone] Referring Provider: Shakila Orellana, [address] [place], [address] . tel:[phone] [facility], [address] [place] [address], [id number], tel:[phone] [place] [address] No Information 4 [facility]. [address] [place] [address], [id number], [place]. tel:[phone] Referring Provider: Shakila Orellana, [address] [place], [address] . tel:[phone] [place] [address], [address] [place] [address], [id number], tel:[phone] [place] [address] No Information 3 [facility]. [address] [place] [address], [id number], [place]. tel:[phone] Referring Provider: Shakila Orellana, [address] [place], [address] . tel:[phone] [facility], [address] [place] [address], [id number], tel:[phone] [place] [address] No Information 3 [facility]. [address] [place] [address], [id number], [place]. tel:[phone] Referring Provider: Shakila Orellana, [address] [place], [address] . tel:[phone] [place] [address], [address] [place] [address], [id number], [place] tel:[phone] [place] [address] No Information 3 [facility]. [address] [place] [address], [id number], [place]. tel:[phone] Referring Provider: Shakila Orellana, [address] [facility], [place], [address] . tel:[phone] [facility], [address] [place] [address], [id number], tel:[phone] [facility] No Information 3 [facility]. [address] [place] [address], [id number], . tel:[phone] Referring Provider: Shakila Orellana, [address] [facility], [place], [address] . tel:[phone] [facility], [address] [place] [address], [id number], tel:[phone] [place] [address] No Information [facility]. [address] [place] [address], [id number], . tel:[phone] Referring Provider: Antonio Collins [facility] [address], [place], [address]. tel:[phone] [facility], [address] [place] [address], [id number], tel:[phone] [place] [address] No Information [facility]. [address] [place] [address], [id number], . tel:[phone] Referring Provider: Antonio Collins [facility] [address], [place], [address]. tel:[phone] Family History Family Member Type Diagnosis Age At Onset No Information Payers Payer name Insurance type Covered democrat ID Authoriza tion(s) No Information Social History Type Description Quantity Date Captured Comments Sex Female Smoking Status No Information Gender Identity [id number] (FTM) /Transgender Male/Trans Man Chief Complaint And Reason For Visit No Information Reason For Referral Reason For Referral No Information History Of Present Illness Encounter Date Complaint History Of Prese nt Illness No Information Functional Status Date Functional Assessmen t No Information Instructions Date Instruction Additional Infor mation No Information Assessments Type Assessment Date No Information Patient Care Teams Name Effective Dates (start - stop) Status Members No Information
--- OUTSIDE RECORDS SUMMARY | 2024-08-16 20:22 | XMS_ITS | Clinical Summary ---
Author Organization [employer] [facility] Address [place], [place] [address] Care Team Providers Care Employment Specialist Name Role Phone Carl Thompson MD Primary Care Provider Allergies No known active allergies Medications Medication Sig Dispensed Refills Start Date End Date Status methylphenidate (CONCERTA) 36 mg Extended-Release tablet Take 1 tablet by mouth once daily. 0 08/05/2012 Active methylphenidate (RITALIN) 10 mg tablet 1 tablet 2 times daily. 0 08/05/2012 Active ibuprofen (ADVIL; MOTRIN) 200 mg tablet Take 1 tablet by mouth 4 times daily if needed. 0 08/05/2012 Active multivitamin (CHEWABLE MULTI VITAMIN) chew Take 1 tablet by mouth once daily. 0 10/01/2013 Active testosterone 1%, 12.5mg/1.25g, (ANDROGEL) 12.5 mg/ 1.25 gram (1 %) glpm GEL APPLY 2 PUMPS ONTO SKIN DAILY APPLY FROM DISPENSER TO CLEAN DRY INTACT SKIN OF THE UPPER OF ARMS AND SHOULDERS 0 06/19/2018 Active montelukast (SINGULAIR) 10 mg tablet Take 10 mg by mouth once daily. 1 07/25/2018 Active furosemide (LASIX) 20 mg tablet TAKE 1 2 TABLET 10MG BY MOUTH TWICE DAILY 3 07/25/2018 Active indomethacin (INDOCIN) 50 mg capsule TAKE ONE CAPSULE BY MOUTH THREE TIMES A DAY NEEDED 1 07/29/2018 Active eszopiclone (LUNESTA) 1 mg tablet Bedtime 04/25/2018 Active escitalopram oxalate (LEXAPRO) 20 mg tablet Take 20 mg by mouth once daily. 0 07/25/2018 Active gabapentin (NEURONTIN) 600 mg tablet 2 09/16/2019 Active meloxicam 15 mg tablet 0 09/13/2019 Active Active Problems Problem Noted Date Diagnosed Date Sacroiliac joint pain from osteoarthritis 2012 Degeneration of lumbar or lumbosacral interverte bral disc 08/05/2012 Lumbar facet arthropathy 08/05/2012 Encounters Date Type Department Care Team Description 08/16/2024 8:30 PM CDT Emergency [facility] Emergency Department [address] [place] [address] 08/16/2024 Office Visit [facility] [address] [place] [address] Berna Méndez MD Telehealth ([facility]) from Last 3 Months Social History Tobacco Use Types Packs/Day Years Used Date Smoking Tobacco: Former Cigarettes 0.5 30 Smokeless Tobacco: Never Tobacco Cessation:Counseling Given: Yes Alcohol Use Standard Drinks/Week Comments Yes 0 (1 standard drink = 0.6 oz pur e alcohol) occassional beer 1-2 x/weeks Sex and Gender Information Value Date Recorded Sex Assigned at Not on file Gender Identity Not on file Sexual Orientation Not on file Obstetrics History Last Filed Vital Signs Vital Sign Reading Time Taken Comments Blood Pressure 151/83 09/17/2019 2:22 PM GAMBRELER Pulse 93 09/17/2019 2:22 PM GAMBRELER Temperature 36.9 ??C (98.5 ??F) 09/17/2019 2:22 PM CS T Respiratory Rate 18 08/27/2013 1:07 PM GAMBRELER Oxygen Saturation 94% 09/17/2019 2:22 PM GAMBRELER Inhaled Oxygen Concentration - - Weight 123.1 kg (271 lb 6.4 oz) 01/30/2019 2:33 PM CDT shoes on Height 162.6 cm (5' 4) 08/01/2018 1:36 PM CDT Body Mass Index 46.59 08/01/2018 1:36 PM CDT Plan of Treatment Health Maintenance Due Date Last Done Comments Tdap 1983 Depression screening for age 12+ 1984 HIV for age 15-65 1987 Hepatitis C screening for age 18-79 1990 Tetanus booster 1992 Colonoscopy through age 75 2017 Lipids for age 45-75 2017 BMI (ht and wt on same day) for age 18+ 08/01/2019 08/01/2018 Zoster (shingles) series for age 50+ (1 of 2) 2022 Influenza for age 50-64 06/15/2024 COVID-19 vaccine series Completed 07/04/20, 08/02/2023, 07/25/2022, Additional history exists Pneumococcal series for age 6-64 Aged Out No longer eligible based on patient's age to complete this topic Care Teams Employment Specialist Relationship Specialty Start Date End Date Carl Thompson MD [address] [place] [address] PCP - General 08/05/12
--- OUTSIDE RECORDS SUMMARY | 2024-08-16 20:22 | XMS_ITS | Continuity of Care Document ---
Author Organization [facility] Address [address] [place] [address] Phone Care Team Providers Care Chemical Educator Name Role Phone Ricardo Burgos MD Unavailable Unavailable Allergies, Adverse Reactions, Alerts Substance Reaction Status Criticality No Known Allergies Active No Inform ation Medications Medication Instructions Dosage Effective Dates (start - stop) Status Comments furosemide 20 mg tablet take 1 tablet by oral route every day 20 MG - Active montelukast 10 mg tablet take 1 tablet by oral route every day 10 MG - Active escitalopram 20 mg tablet take 1 tablet by oral route every day 20 MG - Active methylphenidate ER 36 mg tablet,extended release 24 hr Take 1 tablet 6 days weekly. - Active indomethacin 50 mg capsule take 2-3 capsule by oral route daily as needed - Active eszopiclone 1 mg tablet take 1 Tablet by oral route as needed. - Active testosterone 12.5 mg/1.25 gram per actuation (1%) transdermal gel pump apply 2 pump by transdermal route every day in the morning to shoulders/upper arms and/or abdomen divided evenly between areas 25 MG - Active potassium 99 mg tablet 1 tablet daily. - A ctive GLUCOSAMINE-CHONDROITI N (unknown strength) take 1 capsule by oral route every day Not Available - Active diphenhydramine 25 mg capsule take 1 Capsule by oral route daily as needed. - Active Procedures Procedure Date Office/Outpatient Visit, New Advance Directives Directive Yes / No Effective Date File Name No Information Encounters Encounter Description Practice Location Reason(s) For Visit Diagnoses Date Provider Providers Copied on Encounter Office/Outpa tient Visit, New [facility], [address], [place], [address], [place] tel:[phone] [facility] , PainPositive Antibody 8 Aubrey Silva. [facility] [address], [place], [address], [place]. tel:[phone] Referring Provider: Ricardo Mendiola, [facility], [address], [place], [address]. tel:[phone] Family History Family Member Type Diagnosis Age At Onset Problem (finding) No family hist ory of Rheumatoid arthritis Payers Payer name Insurance type Covered green party ID Authorvinicio chen(s) [facility] [id number] Social History Type Description Quantity Date Captured Comments Alcohol Use Details Caffeine Use Details soda 3 sodas/day per day Tobacco Use Status Ex-cigarette smoker 018 Smoking Status Former smoker Smoking Tobacco Use Details Cigarette: Age Stopped: 44 Cigarette: No Details Available Sex Male Vital Signs Date / Time: Height Weight BMI Pulse Rate Blood Pressure Temperature Respiratory Rate Body Surface Area Head Circumference Head Circ. Percentile Wt./Stalin. Percentile BMI percentile Pulse Ox Inhaled Ox 2:38 PM 64.00 in 118.478 kg (261.20 lbs) 44.8 3 kg/m eter (2) 150/100 mm[Hg] Chief Complaint And Reason For Visit No Information Reason For Referral Reason For Referral No Information History Of Present Illness Encounter Date Complaint History Of Prese nt Illness No Information Functional Status Date Functional Assessmen t Pain Score 5/10 Instructions Date Instruction Additional Infor mation No Information Assessments Type Assessment Date assessment Pain assessment Positive Antibody Patient Care Teams Name Effective Dates (start - stop) Status Members No Information
--- OUTSIDE RECORDS SUMMARY | 2024-08-16 20:22 | XMS_ITS | Continuity of Care Document ---
Author Organization [facility] Address [address] [place] [address] Phone Care Team Providers Care Social Work Coordinator Name Role Phone Dat Ramon MD Unavailable Unavailable Procedures Procedure Date Office/Outpatient Visit,Pedro Argueta 2017 Advance Directives Directive Yes / No Effective Date File Name No Information Encounters Encounter Description Practice Location Reason(s) For Visit Diagnoses Date Provider Providers Copied on Encounter [facility], [address], [place], [id number], [place] tel:[phone] [facility] No Information Yenny Daugherty. [facility] [place], [address] [place] [address], [id number] , [place]. tel:[phone] Office/Outpat ient Visit,[facility], [facility], [address], [facility] [place], [place], [id number], [place] tel:[phone] [facility] Kolton Hanna. [facility] [place], [address] [place] [address] [address], [place], [address], [place]. tel:[phone] Referring Provider: Carl Thompson, [facility] [address] [place] [address], [address]. tel:[phone] [facility], [address], [place], [id number], [place] tel:[phone] [facility] Low back pain Kolton Hanna. [facility], [address] [facility] [address], [place], [address], [place]. tel:[phone] Family History Family Member Type Diagnosis Age At Onset No Information Payers Payer name Insurance type Covered democrat ID Authorvinicio chen([place]) [place] [id number] [place] [id number] Social History Type Description Quantity Date Captured Comments Sex Male Smoking Status No Information Chief Complaint And Reason For Visit No [...]
[2024-08-16 20:26] LABS: Basophils Percent Auto 0.2 % (0.0-3.0); Eosinophils Percent Auto 2.3 % (0.0-7.0); Hematocrit 46.4 % (37.0-53.0); Hemoglobin* 15.1 gm/dL (13.5-17.5); Immature Granulocytes Pct Auto 1.2 %; Lymphocytes Percent Auto 18.2 % (20-44); Mean Corpuscular HGB Conc 33 gm/dL (32-36); Mean Corpuscular Hemoglobin 29 pg (26-34); Mean Corpuscular Volume 90 fL (80-100); Monocytes Percent Auto 8.7 % (0.0-11.0); Neutrophils Percent Auto 69.4 % (42.0-72.0); Platelet Count* 367 K/uL (140-440); RDW Coefficient of Variation % 13.2 % (11.5-15.5); Red Blood Count 5.13 m/uL (4.30-5.90); White Blood Count* 12.99 K/uL (4.50-11.00)
[2024-08-16 20:27] LABS: Slide Review Reflex No
[2024-08-16 20:39] LABS: Chloride* 100 mmol/L (96-114)
[2024-08-16 20:40] LABS: Albumin* 3.8 g/dL (3.3-5.0); Potassium* 3.7 mmol/L (3.6-5.1); Sodium* 133 mmol/L (135-149)
[2024-08-16 20:42] LABS: Creatinine* 0.7 mg/dL (0.5-1.5); Estimated Glomerular Filt Rate 111 ml/min; INR 0.91 (0.91-1.10); Prothrombin Time 12.7 Seconds
[2024-08-16 20:43] LABS: Alanine Aminotransferase* 22 U/L (4-50); Alkaline Phosphatase* 87 U/L (40-150); Anion Gap 9 mEq/L (7-15); Aspartate Amino Transferase* 21 U/L (12-35); Bilirubin Total* 0.3 mg/dL (0.1-1.5); Blood Urea Nitrogen* 17 mg/dL (7-30); Calcium* 8.7 mg/dL (8.4-10.6); Carbon Dioxide* 24 mmol/L (20-32); Glucose* 134 mg/dL (60-115); Total Protein* 6.8 g/dL (6.0-8.3)
[2024-08-16 20:44] LABS: Partial Thromboplastin Time* 23 Seconds (23-33)
[2024-08-16 20:46] LABS: C Reactive Protein* 1.7 mg/dL (0.5-1.0)
[2024-08-16 20:47] LABS: Ethanol* < 0.01 % (0.01-0.03)
== END 2024-08-16 20:51 | disposition short-term general hospital (02) ==
LOC: ED 20:20
PROVIDERS: Emergency Provider Family Medicine; PCP Internal Medicine
DX: I63.9 Cerebral infarction, unspecified (principal); F64.0 Transsexualism
CPT/HCPCS: 36415; 70450; 70496; 70498; 80048; 80053; 80306; 82077; 84484; 85025; 85610; 85730; 86140; 93005; 94761; 96374; 99285; 99291; A9270; J3101; Q9967